=== PATIENT | female | born 1945 | race Caucasian/White ===

== ENCOUNTER 2017-02-14 20:02 | Emergency (ER) | payer MEDICARE, MEDICAID ==
[~2017-02-14] VITALS: Ht 160 cm; Wt 49.9 kg
--- NOTE | 2017-02-14 20:16 | NUR ---
PT PRESENTED TO THE ER WITH A C/O N/V WITH ABD PAIN. PT WAS TAKEN TO ROOM #3 VIA WC. PT IS [place] SPEAKING ONLY. PT WAS TAKEN TO THE BATHROOM AND A URINE SAMPLE WAS OBTAINED.
--- NOTE | 2017-02-14 20:25 | NUR ---
20G IV STARTED IN RAC. BLOOD WAS DRAWN.
[2017-02-14] MEDS ORDERED: IV NS 0.9% 1,000 ML ONE (20:28)
[2017-02-14] MEDS ORDERED: IV SET PRIMARY 1 EA INFUS.SET MC ONE (20:28)
[2017-02-14] MEDS ORDERED: ONDANSETRON HCL/PF 4 MG/2 ML VIAL ONE (20:28)
--- NOTE | 2017-02-14 20:28 | NUR ---
DR. SANTIAGO IS AT THE BEDSIDE.
[2017-02-14] MEDS ORDERED: IV NS 0.9% 1,000 ML BAG IV ONE ×2 (20:30→21:30)
[2017-02-14] MEDS ORDERED: ONDANSETRON HCL/PF 4 MG/2 ML VIAL IVP ONE (20:30)
[2017-02-14 20:32] LABS: BASOPHILS # (AUTO) 0.1 /CMM (0.0-0.2); BASOPHILS % (AUTO) 0.7 % (0.0-2.0); EOSINOPHILS % (AUTO) 0.6 % (0.0-6.0); HEMATOCRIT 42 % (33-45); HEMOGLOBIN 14.2 g/dL (11.5-14.8); LYMPHOCYTES # (AUTO) 1.2 /CMM (0.8-4.8); LYMPHOCYTES % (AUTO) 15.7 % (20.0-44.0); MEAN CORPUSCULAR HEMOGLOBIN 30 PG (26.0-33.0); MEAN CORPUSCULAR HGB CONC 34 g/dl (31.0-36.0); MEAN CORPUSCULAR VOLUME 90 fL (82-100); MONOCYTES # (AUTO) 0.2 /CMM (0.1-1.30); MONOCYTES % (AUTO) 2.2 % (2.0-12.0); NEUTROPHILS # (AUTO) 5.9 /CMM (1.8-8.9); NEUTROPHILS % (AUTO) 80.8 % (43.0-81.0); PLATELET COUNT (AUTO) 206 /CMM (150-450); RDW COEFFICIENT OF VARIATION 12.3 (11.5-15.0); WHITE BLOOD COUNT (AUTO) 7.4 K/uL (4.3-11.0)
[2017-02-14 20:34] LABS: APPEARANCE,URINE Clear (CLEAR); BILIRUBIN,URINE Negative (NEGATIVE); BLOOD, URINE Trace-intact Ery/uL (NEGATIVE); COLOR,URINE Yellow (YELLOW); KETONES,URINE 40 (NEGATIVE); LEUKOCYTE ESTERASE ,URINE Small (NEGATIVE); NITRITE, URINE Negative (NEGATIVE); PROTEIN,URINE Trace mg/dl (NEGATIVE); UGLUCOSE 500 MG/DL mg/dL (NEGATIVE); UROBILINOGEN,URINE 0.2 EU/dL (0.2)
[2017-02-14 20:43] LABS: CALCIUM, SERUM 8.8 mg/dL (8.5-10.1); CARBON DIOXIDE 28 mmol/L (21-32); CHLORIDE 102 mmol/L (98-107); CREATININE 0.9 mg/dL (0.6-1.3); GLUCOSE 324 mg/dL (74-106); POTASSIUM 3.6 mmol/L (3.5-5.1); SODIUM SERUM 138 mmol/L (136-145); UREA NITROGEN, BLOOD 18 mg/dL (7-18)
[2017-02-14 20:46] LABS: INR 0.98 (0.87-1.13); PROTHROMBIN TIME 10.2 SECS (9.5-12.7)
[2017-02-14 20:48] LABS: ALANINE AMINOTRANSFERASE 24 U/L (12-78); ALBUMIN 4.3 g/dL (3.4-5.0); ALKALINE PHOSPHATASE 132 U/L (46-116); ASPARTATE AMINOTRANSFERASE 25 U/L (15-37); BILIRUBIN,DIRECT 0.1 mg/dL (0.0-0.2); BILIRUBIN,TOTAL 0.5 mg/dL (0.2-1.0); LIPASE 127 U/L (73-393); TOTAL PROTEIN, SERUM 7.8 g/dL (6.4-8.2)
[2017-02-14 20:50] LABS: BACTERIA,URINE Few /HPF (None Seen); SQUAMOUS EPITHELIAL CELL,UR Few /HPF (None Seen)
--- NOTE | 2017-02-14 20:58 | NUR ---
XRAY TAKEN AT THE BEDSIDE.
--- NOTE | 2017-02-14 21:25 | NUR ---
DR. SANTIAGO IS AT THE BEDSIDE SPEAKING TO THE PT.
--- NOTE | 2017-02-14 21:28 | NUR ---
PT TO BE D/C'D HOME AFTER IVF IS FINISHED INFUSING.
[2017-02-14 22:07] VITALS: BP 145/73
--- NOTE | 2017-02-14 22:07 | NUR ---
IV removed. Catheter intact and site benign. Pressure and 4x4 applied to site. No bleeding noted.Patient discharged to home in stable condition. Written and verbal after care instructions given. Patient verbalizes understanding of instruction AND RX. PT'S FRIENDS ARE DRIVING PT HOME. VSS. PT FELT A LITTLE DIZZY UPON STANDING. PT SAT BACK DOWN AND WAS TAKEN TO THE CAR VIA WC.
== END 2017-02-14 22:09 | disposition home or self-care (01) ==
LOC: ER 20:06
DX: R10.13 Epigastric pain (principal); R11.2 Nausea with vomiting, unspecified; E11.65 Type 2 diabetes mellitus with hyperglycemia
CPT/HCPCS: 36415; 71010-TC; 80048-TC; 80076-TC; 81000-TC; 83690-TC; 85025-TC; 85730-TC; 87086-TC; A4606; J2405; J7030; Z7610

== ENCOUNTER 2019-09-15 17:44 | Inpatient (IN) | payer MEDICARE, MEDICAID ==
[~2019-09-15] VITALS: Ht 149.9 cm; Wt 47.2 kg
--- NOTE | 2019-09-15 17:55 | NUR ---
PT BIB CAREGIVER C/O LT FOOT PAIN, SWELLING AND REDNESS. SENT BY PMD FOR FURTHER EVAL. PT IS AAOX4, NOT IN RESPIRATORY DISTRESS, HOOKED TO MONITOR, KEPT RESTED AND COMFORTABLE, WILL CONTINUE TO MONITOR.
[2019-09-15] MEDS ORDERED: VANCOMYCIN 1 GM in IV D5W 250 ML IV ONE (18:00)
[2019-09-15] MEDS ORDERED: PIPERACILLIN /TAZOBACTAM 3.375 G in IV D5W 50 ML IV ONE (18:00)
[2019-09-15] MEDS ORDERED: IV NS 0.9% 1,000 ML BAG IV ONE ×2 (18:00→19:30)
--- NOTE | 2019-09-15 18:01 | NUR ---
SEEN AND EXAMINED BY .
--- NOTE | 2019-09-15 18:18 | NUR ---
URINE SPECIMEN COLLECTED AND SENT TO LAB.
--- NOTE | 2019-09-15 18:20 | NUR ---
CALLED NURSING SUP FOR M/S BED.
--- NOTE | 2019-09-15 18:20 | NUR ---
IV LINE ESTABLISHED, BLOOD DRAWN AND SENT TO LAB.
[2019-09-15 18:29] LABS: BASOPHILS # (AUTO) 0.1 /CMM (0.0-0.2); BASOPHILS % (AUTO) 0.5 % (0.0-2.0); EOSINOPHILS % (AUTO) 0.1 % (0.0-6.0); HEMATOCRIT 40 % (33-45); HEMOGLOBIN 13.3 g/dL (11.5-14.8); LYMPHOCYTES # (AUTO) 0.4 /CMM (0.8-4.8); MEAN CORPUSCULAR HGB CONC 34 g/dl (31.0-36.0); MEAN CORPUSCULAR VOLUME 91 fL (82-100); MONOCYTES # (AUTO) 0.9 /CMM (0.1-1.30); MONOCYTES % (AUTO) 7.7 % (2.0-12.0); NEUTROPHILS # (AUTO) 9.7 /CMM (1.8-8.9); NEUTROPHILS % (AUTO) 87.7 % (43.0-81.0); PLATELET COUNT (AUTO) 226 /CMM (150-450); RED BLOOD CELL COUNT(AUTO) 4.39 MIL/uL (4.0-5.2)
[2019-09-15 18:31] LABS: BILIRUBIN,URINE Negative (NEGATIVE); BLOOD, URINE Trace-lysed Ery/uL (NEGATIVE); COLOR,URINE Yellow (YELLOW); KETONES,URINE 40 (NEGATIVE); LEUKOCYTE ESTERASE ,URINE Negative (NEGATIVE); NITRITE, URINE Negative (NEGATIVE); PROTEIN,URINE Negative (NEGATIVE); UGLUCOSE 500 MG/DL mg/dL (NEGATIVE); UROBILINOGEN,URINE 0.2 EU/dL (0.2)
--- NOTE | 2019-09-15 18:34 | NUR ---
DOCUMENTATION ANALYST AT BEDSIDE FOR XRAY.
[2019-09-15 18:39] LABS: APPEARANCE,URINE SLIGHTLY HAZY (CLEAR)
[2019-09-15 18:51] LABS: BACTERIA,URINE Few /HPF (None Seen); RBC,URINE 0-2 /HPF (0-2); SQUAMOUS EPITHELIAL CELL,UR Few /HPF (None Seen); WBC,URINE 0-2 /HPF (0-3)
[2019-09-15 18:53] LABS: ALANINE AMINOTRANSFERASE 20 U/L (12-78); ALBUMIN 3.8 g/dL (3.4-5.0); ALKALINE PHOSPHATASE 112 U/L (46-116); ASPARTATE AMINOTRANSFERASE 23 U/L (15-37); BILIRUBIN,DIRECT 0.2 mg/dL (0.0-0.2); BILIRUBIN,TOTAL 0.8 mg/dL (0.2-1.0); CALCIUM, SERUM 8.7 mg/dL (8.5-10.1); CARBON DIOXIDE 24 mmol/L (21-32); CHLORIDE 96 mmol/L (98-107); CREATININE 1.2 mg/dL (0.6-1.3); POTASSIUM 4.2 mmol/L (3.5-5.1); SODIUM SERUM 132 mmol/L (136-145); TOTAL PROTEIN, SERUM 7.9 g/dL (6.4-8.2); UREA NITROGEN, BLOOD 19 mg/dL (7-18)
[2019-09-15 19:00] LABS: GLUCOSE 437 mg/dL (74-106)
[2019-09-15] MEDS ORDERED: MAGNESIUM HYDROXIDE 30 ML UDC PO PRN (19:00)
[2019-09-15] MEDS ORDERED: MAG HYDROX/AL HYDROX/SIMETH 30 ML UDC PO PRN (19:00)
[2019-09-15] MEDS ORDERED: Z GUARD REMEDY 2 OZ OINT TP PRN (19:00)
[2019-09-15] MEDS ORDERED: ONDANSETRON HCL/PF 4 MG/2 ML VIAL IVP PRN (19:00)
--- NOTE | 2019-09-15 19:05 | NUR ---
REPORT GIVEN TO CHERELLE SAUCEDO FOR TREY.
--- NOTE | 2019-09-15 20:19 | NUR ---
REPORT GIVEN TO PRAVIN VILLARREAL FOR TREY.
[2019-09-15] MEDS ORDERED: FEE PK DOSING 1 MIN EA MC ONE (20:23)
--- NOTE | 2019-09-15 20:41 | NUR ---
RN NOTES: -REPORT GIVEN BY LEWIS AT AROUND 2020, 74 Y.O.,A/O2-3, FEMALE TURKS AND [place]ER SPEAKING, CAME IN ER FOR LEFT FOOT SWOLLEN, PAIN AND REDNESS, SHE WAS SEEN BY HER OUTSIDE PRIMARY DOCTOR FOR 2 CONSECUTIVE DAYS, SHE WAS STARTED ON ROCEPHIN AND BACTRIM YESTERDAY, TODAY SHE WAS REFERRED FOR FURTHER EVALUATION AND ADMITTED IN [address] -AFEBRILE, WBC-11, BS-437, IV CANNULA INSERTED IN LAC G#18, SHE RECEIVED VANCO 1 GRAM AND ZOSYN 3.375 GM IN ER, IVF 2 LITER OF NS GIVEN. X-RAY LEFT FOOT NO ABNORMALITIES/NO FRACTURES. CONSIDER MRI IF THERE IS CLINICAL CONCERN FOR OSTEOMYELITIS.[facility]AB SENT. -PATIENT ARRIVED VIA GURNEY, ACCOMPANIED BY 1 STAFF FROM ER, ORIENTED TO UNIT AND STAFF, VERY COOPERATIVE ABLE TO OBTAIN HISTORY WITH THE HELP OF OFFICE CASHIER, SHE AGREED FOR BODY CHECK: 1) REDNESS, PAIN(2/10)AND SWELLING ON THE LEFT FOOT NOTED, OTHER AREAS OF THE BODY IS CLEAR, ROM IS WITHIN NORMAL RANGE ABLE TO STAND AND WALK WITH ASSIST, AMBULATORY,SHE REFUSED FOR PNA AND FLU VACCINE DESPITE EXPLANATION WITH THE HELP OF INTERPRETED SHE VERBALIZED SHE NEVER GET VACCINE AND SHE DO NOT BELIEVE IN IT. FALL,SAFETY AND ASPIRATION PRECAUTION OBSERVED, ON ROOM AIR, KEPT ON CLOSE WATCH.
[2019-09-15 21:00] VITALS: BP 128/51
[2019-09-15] MEDS: IV NS 0.9% 1,000 ML IV PRN (22:04)
--- NOTE | 2019-09-16 00:30 | NUR ---
RN NOTES: BLOOD SUGAR [id number], DIGITAL PERFORMANCE ANALYST DR. SINHA MADE AWARE, HE ORDERED TO START MILD SLIDING SCALE Q ACHS. INSULIN STARTED GIVEN PER SCALE.
[2019-09-16] MEDS: BLOOD SUGAR DIAGNOSTIC 1 EACH STRIP IN SCH ×5 (00:47→21:35)
[2019-09-16] MEDS: INSULIN REGULAR, HUMAN 100 UNIT/ML 3 ML VIAL SQ PRN ×5 (00:49→21:37)
[2019-09-16] MEDS ORDERED: DEXTROSE 50%-WATER 50 ML DISP.SYRIN IV PRN (01:00)
[2019-09-16 06:03] VITALS: BP 128/51
--- NOTE | 2019-09-16 06:23 | NUR ---
RN NOTES: AWAKE , ASSISTED TO THE BATHROOM, NO BM, TOTAL 3X URINE, ABLE TO WALK WITH STANDBY ASSIST, NO PAIN OR DISCOMFORT, KEPT COMFORTABLE IN BED, LATEST BS-185, ENDORSED FOR CONTINUITY OF CARE, FOR WOUND CONSULT, DIETARY CONSULT AND LABS THIS MORNING, ENDORSED FOR CONTINUITY OF CARE.
[2019-09-16 07:16] LABS: BASOPHILS % (AUTO) 0.5 % (0.0-2.0); EOSINOPHILS % (AUTO) 1.1 % (0.0-6.0); HEMATOCRIT 34 % (33-45); HEMOGLOBIN 11.6 g/dL (11.5-14.8); LYMPHOCYTES # (AUTO) 0.7 /CMM (0.8-4.8); LYMPHOCYTES % (AUTO) 10.1 % (20.0-44.0); MEAN CORPUSCULAR HGB CONC 34 g/dl (31.0-36.0); MEAN CORPUSCULAR VOLUME 90 fL (82-100); MONOCYTES # (AUTO) 0.7 /CMM (0.1-1.30); MONOCYTES % (AUTO) 9.5 % (2.0-12.0); NEUTROPHILS # (AUTO) 5.8 /CMM (1.8-8.9); NEUTROPHILS % (AUTO) 78.8 % (43.0-81.0); PLATELET COUNT (AUTO) 195 /CMM (150-450); RED BLOOD CELL COUNT(AUTO) 3.76 MIL/uL (4.0-5.2); WHITE BLOOD COUNT (AUTO) 7.4 K/uL (4.3-11.0)
[2019-09-16 07:42] LABS: CALCIUM, SERUM 7.7 mg/dL (8.5-10.1); CREATININE 0.9 mg/dL (0.6-1.3); MAGNESIUM 2.1 mg/dL (1.8-2.4); PHOSPHORUS 2.5 mg/dL (2.5-4.9); POTASSIUM 3.7 mmol/L (3.5-5.1)
[2019-09-16] MEDS ORDERED: GLIP5TAB13 PO (07:49)
[2019-09-16 08:00] VITALS: BP 118/61
--- NOTE | 2019-09-16 08:11 | NUR ---
MS RN OPENING NOTES RECEIVED PATIENT IN BED, ASLEEP. PATIENT BREATHING ON ROOM AIR WITH NO SIGNS OF DISTRESS OR SOB AT THIS TIME. NO SIGNS OF PAIN SUCH MOANING OR FACIAL GRIMACING. LAC GAUGE # 18 PRESENT AND INFUSING WELL AT 75 CC/HR. SAFETY PRECAUTIONS IN PLACE: BED IN LOW POSITION AND LOCKED, RAILS UP X 2, CALL LIGHT WITHIN REACH. WILL CONTINUE TO MONITOR PATIENT.
[2019-09-16] MEDS: VANCOMYCIN 500 MG in IV D5W 100 ML IV SCH ×2 (08:37→21:29)
[2019-09-16] MEDS: IV NS 0.9% 1,000 ML IV PRN (14:38)
[2019-09-16 16:00] VITALS: BP 137/58
--- NOTE | 2019-09-16 18:50 | NUR ---
MS RN CLOSING NOTES PATIENT IN BED AT THIS MOMENT, AWAKE, A/O X4. PATIENT ON ROOM AIR BREATHING EVENLY WITH NO SIGNS OF DISTRESS AT THIS MOMENT. PATIENT DENIES PAIN AT THIS TIME. LAC # 18 PATENT AND INTACT INFUSING NS AT 75 CC/HR. ALL NEEDS ATTENDED. SAFETY PRECAUTIONS IN PLACE: BED IN LOW POSITION AND LOCKED, RAILS UP X2, CALL LIGHT WITHIN REACH. WILL ENDORSE TO RHIT NURSE.
--- NOTE | 2019-09-16 19:20 | NUR ---
MS RN PATIENT IN BED AWAKE, WATCHING TV A/O X 3. STABLE AND NOT IN DISTRESS, SAFETY MEASURES IN PLACE. WILL CONTINUE TO MONITOR.
[2019-09-16 20:00] VITALS: BP 132/67
[2019-09-17] MEDS: IV NS 0.9% 1,000 ML IV PRN ×2 (04:18→23:29)
[2019-09-17] MEDS: INSULIN REGULAR, HUMAN 100 UNIT/ML 3 ML VIAL SQ PRN ×3 (06:23→22:21)
[2019-09-17] MEDS: BLOOD SUGAR DIAGNOSTIC 1 EACH STRIP IN SCH ×4 (06:23→22:21)
--- NOTE | 2019-09-17 06:39 | NUR ---
MS RN NO SIGNIFICANT CHANGES, PT ASLEEP AND EASILY AWAKEN, SLEPT WELL, NEEDS ATTENDED AND ANTICIPATED, KEPT CLEAN, DRY AND COMFORTABLE AT ALL TIMES. AM CARE RENDERED. OFFLOAD HEELS AND ELBOWS AT ALL TIMES. SAFETY MEASURES AT ALL TIMES. WILL ENDORSE NEXT SHIFT POC. MONITORED FOR PAIN.
--- NOTE | 2019-09-17 06:47 | NUR ---
MS RN PT REFUSED SLIDING SCALE R INSULIN OF 2 UNITS DESPITE EXPLAINING RISKS AND BENEFITS OFFERED 3 TIMES PT REFUSED. BLOOD SUGAR 141 MG/DL PT VERBALIZED"IM OKAY NO INSULIN PLEASE".
--- NOTE | 2019-09-17 07:33 | NUR ---
MS RN OPENING NOTES RECEIVED PATIENT IN BED, AWAKE, A/O X 4. PATIENT BREATHING ON ROOM AIR WITH NO SIGNS OF DISTRESS OR SOB AT THIS TIME. PATIENT DENIES PAIN AT THIS TIME. LAC GAUGE # 18 PRESENT AND INFUSING WELL AT 75 CC/HR. SAFETY PRECAUTIONS IN PLACE: BED IN LOW POSITION AND LOCKED, RAILS UP X 2, CALL LIGHT WITHIN REACH. WILL CONTINUE TO MONITOR PATIENT.
[2019-09-17 08:00] VITALS: BP 136/72
[2019-09-17 08:30] LABS: CALCIUM, SERUM 8.2 mg/dL (8.5-10.1); CARBON DIOXIDE 23 mmol/L (21-32); CHLORIDE 103 mmol/L (98-107); CREATININE 0.7 mg/dL (0.6-1.3); GLUCOSE 150 mg/dL (74-106); POTASSIUM 3.8 mmol/L (3.5-5.1); SODIUM SERUM 136 mmol/L (136-145); UREA NITROGEN, BLOOD 10 mg/dL (7-18)
[2019-09-17] MEDS: VANCOMYCIN 500 MG in IV D5W 100 ML IV SCH ×2 (08:36→20:43)
--- NOTE | 2019-09-17 12:58 | NUR ---
MS RN NOTES AT 12:08 VERIFIED PATIENT BS LEVEL. BS WAS 411 AFTER SECOND TEST. MD NOTIFIED. CRITICAL LAB VALUE DOCUMENTED. PER MD ADMINISTER 15 UNITS OF INSULIN X1 TIME. INSULIN ADMINISTERED. WILL CONTINUE TO MONITOR PATIENT.
[2019-09-17 16:00] VITALS: BP 145/60
--- NOTE | 2019-09-17 18:46 | NUR ---
MS RN CLOSING NOTES PATIENT IN BED, ASLEEP. THROUGHOUT THE DAY COOPERATIVE AND QUITE. PATIENT BREATHING ON ROOM AIR WITH NO SIGNS OF DISTRESS OR SOB AT THIS TIME. PATIENT DENIED PAIN THROUGHOUT THE DAY. R HAND # 20 PRESENT AND INFUSING WELL AT 75 CC/HR. SAFETY PRECAUTIONS IN PLACE: BED IN LOW POSITION AND LOCKED, RAILS UP X 2, CALL LIGHT WITHIN REACH. WILL ENDORSE TO MAKEUP ARTISTRY INSTRUCTOR NURSE.
--- NOTE | 2019-09-17 19:30 | NUR ---
RN MS NOTES PT RESTING IN BED, AWAKE, ALERT AND ORIENTED, NO COMPLAINT OF PAIN, BREATHING PATTERN NORMAL, CALL LIGHT WITHIN REACH, KEPT WARM AND COMFORTABLE, WILL CONTINUITY WITH CARE.
[2019-09-17 20:00] VITALS: BP 118/68
[2019-09-17 21:00] VITALS: BP 128/70
--- NOTE | 2019-09-18 06:38 | NUR ---
RN MS NOTES PT.RESTING IN BED, AWAKE, ALERT AND ORIENTED, NO COMPLAINT OF PAIN, BREATHING PATTERN NORMAL, CALL LIGHT WITHIN REACH, IV FLUIDS INFUSING WELL,, ALL NEEDS ATTENDED.WILL ENDORSE TO AM RN FOR CONTINUITY WITH CARE.
[2019-09-18] MEDS: INSULIN REGULAR, HUMAN 100 UNIT/ML 3 ML VIAL SQ PRN ×4 (06:52→21:55)
[2019-09-18] MEDS: BLOOD SUGAR DIAGNOSTIC 1 EACH STRIP IN SCH ×4 (06:54→21:50)
--- NOTE | 2019-09-18 07:30 | NUR ---
MS RN OPENING NOTES RECEIVED PATIENT IN BED ALERT AND AWAKE. HOB ELEVATED. NO SOB. C/O PAIN 2/10 TO LEFT FOOT BUT TOLERABLE PER PATIENT AND DOES NOT WANT PAIN MEDICATION AT THIS TIME. RIGHT FA # 20 INTACT AND PATENT INFUSING NS @ 75ML/HR MAREN WELL. BED IN LOWEST POSITION, LOCKED. BED ALARM ON. CALL LIGHT WITHIN REACH.
[2019-09-18 07:50] VITALS: BP 156/80
[2019-09-18 08:43] LABS: CALCIUM, SERUM 8.5 mg/dL (8.5-10.1); CREATININE 0.8 mg/dL (0.6-1.3); POTASSIUM 3.9 mmol/L (3.5-5.1)
[2019-09-18] MEDS: VANCOMYCIN 500 MG in IV D5W 100 ML IV SCH (09:17)
--- NOTE | 2019-09-18 09:54 | NUR ---
WOUND CARE CONSULT: PT PRESENTS WITH INTACT BLISTER WITH REDNESS, SWELLING AND TENDERNESS TO LEFT DORSAL FOOT, PRESENT ON ADMISSION. RECOMMEND DPM CONSULT. DR CAMPBELL NOTIFIED OF CONSULT REQUEST. Addendum: 09/18/19 at 0955 by TEOFILO PERRY WNDNU Amended: Links added.
[2019-09-18] MEDS: HYDROCODONE/APAP 5/325MG 1 EACH TABLET PO PRN (15:42)
[2019-09-18 16:00] VITALS: BP 140/71
--- NOTE | 2019-09-18 16:59 | NUR ---
MS RN NOTES PATIENT OFF UNIT, PATIENT LEFT FOR MRI
[2019-09-18] MEDS: IV NS 0.9% 1,000 ML IV PRN (17:50)
--- NOTE | 2019-09-18 18:44 | NUR ---
MS RN CLOSING NOTES PATIENT RESTING COMFORTABLY IN BED. FAMILY AT BEDSIDE. HOB ELEVATED. NO S/S OF RESPIRATORY DISTRESS. DENIES ANY C/O PAIN NOR DISCOMFORT AT THIS TIME. LEFT FA # 22 INTACT AND PATENT INFUSING NS @ 75ML/HR MAREN WELL. PATIENT SEEN BY DR. GALDAMEZ, WOUND CARE DONE TO LEFT FOOT MAREN WELL. BED IN LOWEST POSITION, LOCKED. BED ALARM ON. CALL LIGHT WITHIN REACH. ABLE TO VERBALIZE NEEDS. IN NO APPARENT DISTRESS.
--- NOTE | 2019-09-18 19:30 | NUR ---
MS RN OPENING NOTES PATIENT AWAKE IN BED. A/OX4. [place] CITIZEN SPEAKING. ON ROOM AIR. NO S/S OF ACUTE RESPIRATORY DISTRESS AND NO COMPLAINTS OF PAIN AT THIS TIME. IV PRESENT ON LEFT FA, SIZE 22, INTACT & PATENT, HEP LOCKED. BED LOCKED, SIDE RAILS X2, CALL LIGHT WITHIN REACH. WILL CONTINUE TO MONITOR.
[2019-09-18 20:00] VITALS: BP 115/57
[2019-09-18] MEDS: VANCOMYCIN 0.75 GM in IV D5W 250 ML IV SCH (21:32)
[2019-09-19] MEDS: HYDROCODONE/APAP 5/325MG 1 EACH TABLET PO PRN (03:24)
[2019-09-19] MEDS: BLOOD SUGAR DIAGNOSTIC 1 EACH STRIP IN SCH ×4 (07:06→22:52)
[2019-09-19] MEDS: INSULIN REGULAR, HUMAN 100 UNIT/ML 3 ML VIAL SQ PRN ×4 (07:07→23:00)
--- NOTE | 2019-09-19 07:38 | NUR ---
MS RN CLOSING NOTES PATIENT AWAKE IN BED. A/O X4. ON ROOM AIR. NO COMPLAINTS OF SOB OR PAIN. IV REMAINS INTACT & PATENT. BED LOCKED, SIDE RAILS X2, CALL LIGHT WITHIN REACH. WILL ENDORSE TO DAY SHIFT NURSE TO FOLLOW PLAN OF CARE.
--- NOTE | 2019-09-19 07:39 | NUR ---
MS/RN OPENING NOTES RECEIVED PATIENT AWAKE IN BED. A/OX4. JAPANESE SPEAKING. ON ROOM AIR. NO S/S OF ACUTE RESPIRATORY DISTRESS AND NO COMPLAINTS OF PAIN AT THIS TIME. IV FLUID OF NS 1L @ 75ml/hr ON LEFT FA, SIZE 22, INTACT & PATENT, BED LOCKED, SIDE RAILS X2, CALL LIGHT WITHIN REACH. WILL CONTINUE TO MONITOR.
[2019-09-19 07:51] LABS: BASOPHILS # (AUTO) 0.1 /CMM (0.0-0.2); BASOPHILS % (AUTO) 0.7 % (0.0-2.0); EOSINOPHILS % (AUTO) 2.3 % (0.0-6.0); HEMATOCRIT 29 % (33-45); LYMPHOCYTES # (AUTO) 0.8 /CMM (0.8-4.8); LYMPHOCYTES % (AUTO) 12.1 % (20.0-44.0); MEAN CORPUSCULAR HGB CONC 35 g/dl (31.0-36.0); MEAN CORPUSCULAR VOLUME 90 fL (82-100); MONOCYTES # (AUTO) 0.8 /CMM (0.1-1.30); MONOCYTES % (AUTO) 11.6 % (2.0-12.0); NEUTROPHILS % (AUTO) 73.3 % (43.0-81.0); PLATELET COUNT (AUTO) 220 /CMM (150-450); WHITE BLOOD COUNT (AUTO) 6.8 K/uL (4.3-11.0)
[2019-09-19 08:00] VITALS: BP_SYST 113; BP_SYST 147; BP_DIAS 56; BP_DIAS 82
[2019-09-19 08:26] LABS: CALCIUM, SERUM 7.5 mg/dL (8.5-10.1); CREATININE 0.9 mg/dL (0.6-1.3); POTASSIUM 3.3 mmol/L (3.5-5.1)
[2019-09-19] MEDS: VANCOMYCIN 0.75 GM in IV D5W 250 ML IV SCH ×2 (08:48→20:35)
[2019-09-19] MEDS: IV NS 0.9% 1,000 ML IV PRN (11:04)
[2019-09-19] MEDS ORDERED: POTASSIUM CHLORIDE 20 MEQ TAB.PRT.SR PO SCH (12:00)
--- NOTE | 2019-09-19 12:01 | NUR ---
MS/RN NOTES BS 344MG/DL 8 UNIT INSULIN
[2019-09-19 16:00] VITALS: BP 141/84
[2019-09-19] MEDS: ACETAMINOPHEN 325 MG TABLET PO PRN (16:00)
--- NOTE | 2019-09-19 16:01 | NUR ---
MS/RN NOTES PATIENT T 101.3, COOLING MEASURE WAS INITIATED PATIENT REFUSED, EXPLAINED THE RISK AND BENEFITS X3, STILL PATIENT REFUSED. ADMINISTERED TYLENOL 640 MG P.O. WILL CONTINUE TO MONITOR.
--- NOTE | 2019-09-19 18:28 | NUR ---
MS/RN CLOSING NOTES PATIENT IS ON BED. PATIENT IS ALERT AND ORIENTED X4. NO RESPIRATORY DISTRESS NOTED. DENIES PAIN AT THIS TIME. SATURATION OXYGEN OF 97% IN ROOM AIR. LATEST TEMP 100. COOLING COMPRESS IS OFFERED PATIENT WAS REFUSED EXPLAINED THE RISK AND BENEFITS. SEEN AND EXAMINED BY MD WITH ORDERS MADE AND CARRIED OUT. ALL DUE MEDS WAS GIVEN. SAFETY PRECAUTION IS INPLACED. BED IN LOWEST POSITION. SIDE RAILS UP X2. CALL LIGHT WITHIN REACH. WILL ENDORSED TO AUTOMATION SALES MANAGER FOR TREY.
--- NOTE | 2019-09-19 19:47 | NUR ---
MS RN OPENING NOTES PATIENT AWAKE A/O X4; PERSIAN SPEAKING; RESTING IN BED COMFORTABLY; BREATHING EVEN AND UNLABORED; NO SOB; NO S/S OF ACUTE RESPIRATORY DISTRESS NOTED; PATIENT TOLERATING ROOM AIR WELL; L FA # 22 INTACT AND PATENT; FLUSHING WELL; NO S/S OF REDNESS OR INFILTRATION; SAFETY PRECAUTIONS IN PLACE; BED LOCKED IN LOW POSITION; SIDE RAILS X2; CALL LIGHT WITHIN REACH; WILL CONTINUE TO MONITOR
[2019-09-19 20:00] VITALS: BP 111/72
--- NOTE | 2019-09-19 23:00 | NUR ---
MS RN NOTES L FA #22 INFILTRATED; IV VANCO STOPPED; IV ACCESS OBTAINED; NEW ACCESS GIVEN, R FA #18; INTACT AND PATENT; FLUSHING WELL; VANCO RE-STARTED; WILL CONTINUE TO MONITOR
[2019-09-20] MEDS: BLOOD SUGAR DIAGNOSTIC 1 EACH STRIP IN SCH ×4 (06:46→22:16)
[2019-09-20] MEDS: INSULIN REGULAR, HUMAN 100 UNIT/ML 3 ML VIAL SQ PRN ×4 (06:48→22:29)
--- NOTE | 2019-09-20 07:06 | NUR ---
MS RN CLOSING NOTES PATIENT AWAKE, RESTING COMFORTABLY IN BED; A/O X4; SOUTH SUDANESE SPEAKER; NO SOB; NO S/S OF ACUTE RESPIRATORY DISTRESS NOTED; ALL NEEDS RENDERED; R FA #18 INTACT AND PATENT; FLUSHING WELL; NO S/S OF REDNESS OR INFILTRATION; SAFETY PRECAUTIONS IN PLACE; BED LOCKED IN LOW POSITION; BILATERAL SIDE RAILS X2; CALL LIGHT WITHIN REACH; WILL ENDORSE TREY TO ONCOMING SHIFT
--- NOTE | 2019-09-20 07:35 | NUR ---
MS/RN OPENING NOTES MS RN CLOSING NOTES RECEIVED PATIENT AWAKE, RESTING COMFORTABLY IN BED; A/O X4; SLOVENIAN SPEAKER; NO SOB; NO S/S OF ACUTE RESPIRATORY DISTRESS NOTED; R FA #18 INTACT AND PATENT; FLUSHING WELL; NO S/S OF REDNESS OR INFILTRATION; SAFETY PRECAUTIONS IN PLACE; BED LOCKED IN LOW POSITION; BILATERAL SIDE RAILS X2; WILL CONTINUE TO MONITOR.
[2019-09-20 08:00] VITALS: BP 112/60
[2019-09-20 08:57] LABS: CALCIUM, SERUM 8.1 mg/dL (8.5-10.1); CREATININE 0.8 mg/dL (0.6-1.3); POTASSIUM 3.5 mmol/L (3.5-5.1)
[2019-09-20] MEDS: VANCOMYCIN 0.75 GM in IV D5W 250 ML IV SCH (09:59)
[2019-09-20] MEDS ORDERED: VANC1PLA9 IV (12:06)
--- NOTE | 2019-09-20 18:22 | NUR ---
MS/RN CLOSING NOTES PATIENT IS LYING ON BED COMFORTABLY ALERT AND ORIENTED X 3. DENIES PAIN AT THIS TIME. NO RESPIRATORY DISTRESS NOTED. IVF OF NS 1L INFUSING 75ML/HR KEPT PATIENT DRY AND COMFORTABLE THE WHOLE TIME. SEEN AND EXAMINED BY MD WITH ORDERS MADE AND CARRIED OUT. ALL DUE MEDS WAS GIVEN. WOUND DRESSING WAS DONE. SAFETY PRECAUTION IS IN PLACED. BED IN LOWEST POSITION. CALL LIGHT WITHIN REACH. WILL ENDORSED TO SIX SIGMA BLACK BELT ENGINEER.
[2019-09-20 20:00] VITALS: BP 127/65
[2019-09-20] MEDS: VANCOMYCIN 500 MG in IV D5W 100ml IV SCH (20:41)
--- NOTE | 2019-09-21 06:18 | NUR ---
MS RN NOTES AWAKE & RESPONSIVE. NOT IN ANY DISTRESS. NO SOB NOTED. DENIES ANY PAIN OR DISCOMFORT AT THIS TIME. WITH IV-HL PATENT & INTACT. AM CARE DONE. MONITORED ACCORDINGLY. CALL LIGHT WITHIN REACH. BED IN LOWEST POSITION. SR UP X 2 WITH BED ALARM ON FOR SAFETY. WILL ENDORSE TO NEXT SHIFT.
[2019-09-21] MEDS: BLOOD SUGAR DIAGNOSTIC 1 EACH STRIP IN SCH ×4 (06:40→22:08)
[2019-09-21 07:11] LABS: BASOPHILS # (AUTO) 0.1 /CMM (0.0-0.2); BASOPHILS % (AUTO) 1.2 % (0.0-2.0); EOSINOPHILS % (AUTO) 1.6 % (0.0-6.0); HEMATOCRIT 30 % (33-45); HEMOGLOBIN 10.2 g/dL (11.5-14.8); LYMPHOCYTES # (AUTO) 0.6 /CMM (0.8-4.8); LYMPHOCYTES % (AUTO) 9.2 % (20.0-44.0); MEAN CORPUSCULAR HGB CONC 34 g/dl (31.0-36.0); MEAN CORPUSCULAR VOLUME 90 fL (82-100); MONOCYTES # (AUTO) 0.8 /CMM (0.1-1.30); MONOCYTES % (AUTO) 12.6 % (2.0-12.0); NEUTROPHILS # (AUTO) 4.7 /CMM (1.8-8.9); NEUTROPHILS % (AUTO) 75.4 % (43.0-81.0); PLATELET COUNT (AUTO) 275 /CMM (150-450); RED BLOOD CELL COUNT(AUTO) 3.32 MIL/uL (4.0-5.2); WHITE BLOOD COUNT (AUTO) 6.2 K/uL (4.3-11.0)
[2019-09-21 08:00] VITALS: BP 131/63
[2019-09-21 08:18] LABS: CREATININE 0.9 mg/dL (0.6-1.3); MAGNESIUM 1.9 mg/dL (1.8-2.4); PHOSPHORUS 4.2 mg/dL (2.5-4.9); POTASSIUM 3.6 mmol/L (3.5-5.1)
[2019-09-21 08:29] VITALS: BP 131/63
--- NOTE | 2019-09-21 09:10 | NUR ---
Dressing changed , wound care as ordered.
[2019-09-21] MEDS: VANCOMYCIN 500 MG in IV D5W 100ml IV SCH ×2 (11:09→22:09)
[2019-09-21] MEDS: INSULIN REGULAR, HUMAN 100 UNIT/ML 3 ML VIAL SQ PRN ×3 (11:47→22:21)
--- NOTE | 2019-09-21 12:10 | NUR ---
Patient noted with leaking IV line, which was removed. A new IV line to the right arm G 22, flushing well.
--- NOTE | 2019-09-21 12:53 | NUR ---
Per patient needs PICC line for penitentiary antibiotics after d/c
[2019-09-21 16:11] VITALS: BP 144/76
--- NOTE | 2019-09-21 19:09 | NUR ---
Patient resting in room. Breathing unlabored and even on room air , VS are stable. Denies pain at this time. Patient NPO after midnight for am procedur by dr. Sampson. All needs attended. Will endorse to next shift for TREY
--- NOTE | 2019-09-21 19:38 | NUR ---
received in bed alert and orientaed. speaks macanese with some understanding of brad. Asked her about surgery and she tld me it is tomorroe. She stated the Doctor came here and told her about it. dresing clean anddry wrapped with gauze
[2019-09-21 20:00] VITALS: BP 133/61
[2019-09-21] MEDS ORDERED: CEFTRIAXONE 1 G in IV D5W 50 ML IV SCH (20:30)
[2019-09-21 20:33] VITALS: BP 133/61
[2019-09-22] MEDS: BLOOD SUGAR DIAGNOSTIC 1 EACH STRIP IN SCH ×3 (05:34→11:30)
[2019-09-22] MEDS ORDERED: FENTANYL PF 250MCG/5ML AMPUL ONE (05:41)
[2019-09-22] MEDS ORDERED: MIDAZOLAM HCL 2 MG/2ML VIAL ONE (05:41)
--- NOTE | 2019-09-22 06:00 | NUR ---
ENDING NOTES: BLOOD SUGAR THIS AM WAS 110. DENTURES UPPER & LOWER PLACED IN MARKED CUP PLACED IN TOP SIDE TABLE DRAWER WITH RING/EARRINGS/NECKLACE IN DEUTURE CUP IN PLASTIC BAG AND CUP LABELED WITH HER NAME. SURGERY HER TO P/U PT AT 0545.
[2019-09-22] MEDS ORDERED: ANESTHESIA TRAY IN PYXIS 1 EA TRAY MC ONE (06:01)
[2019-09-22] MEDS ORDERED: LIDOCAINE HCL/PF 1% 30 ML SDV ONE (06:05)
[2019-09-22] MEDS ORDERED: BUPIVACAINE 0.5 % PF 150 MG/30 ML VIAL ONE (06:05)
[2019-09-22] MEDS ORDERED: VANCOMYCIN 1 GM VIAL ONE (06:05)
[2019-09-22] MEDS ORDERED: GENTAMICIN 80 MG/2 ML VIAL ONE (06:22)
[2019-09-22 08:00] VITALS: BP 137/63
--- NOTE | 2019-09-22 08:00 | NUR ---
M/S RN NOTES PATIENT RECEIVED FROM SURGERY, VSS, NO RESPIRATORY DISTRESS, NO C/O PAIN AT THIS TIME. PATIENT'S DRESSING ON THE LEFT FOOT C/D/I. ASSESSED FOR CIRCULATION AND CAP REFILL <2SEC. IV ACCESS SITES INTACT AND PATENT ON THE LT HAND AND RT FOREARM. PICC LINE ON THE RT UPPER ARM, INTACT AND PATENT. PATIENT'S NEEDS ATTENDED, BED ON LOWEST LOCKED POSITION, CALL LIGHT WITHIN REACH. WILL CONTINUE TO MONITOR.
[2019-09-22] MEDS: VANCOMYCIN 500 MG in IV D5W 100ml IV SCH (09:26)
[2019-09-22] MEDS: INSULIN REGULAR, HUMAN 100 UNIT/ML 3 ML VIAL SQ PRN (11:33)
[2019-09-22] MEDS: ACETAMINOPHEN 325 MG TABLET PO PRN (12:07)
--- NOTE | 2019-09-22 15:20 | NUR ---
M/S RN NOTES PATIENT AWAKE IN BED, FAMILY AT BEDSIDE. PATIENT WITH NO RESPIRATORY DISTRESS, NO COMPLAINT OF PAIN AT THIS TIME. PATIENT'S VSS. PATIENT AND FAMILY GIVEN DISCHARGE INSTRUCTIONS, VERBALIZED UNDERSTANDING. PATIENT'S S/P INCISION AND DEBRIDEMENT, SKIN ASSESSED, LEFT FOOT WITH DRESSING C/D/I. LEFT FOOT WITH SURGICAL SHOE. PATIENT WITH NO OTHER SKIN BREAKDOWN. PATIENT'S BELONGINGS ACCOUNTED FOR AND SIGNED. PATIENT LEFT VIA GURNEY WITH PARAMEDICS.
== END 2019-09-22 15:20 | DRG 622 ==
LOC: ER 17:49 → MED 20:19
PROVIDERS: ADMIT Internal Medicine; ATTEND Internal Medicine
PROC: 0JBR0ZZ Excision of Left Foot Subcutaneous Tissue and Fascia, Open Approach (ICD-10-PCS; principal; 2019-09-22)
PROC: 0QBR0ZX Excision of Left Toe Phalanx, Open Approach, Diagnostic (ICD-10-PCS; 2019-09-22)
DX: E11.00 Type 2 diabetes mellitus with hyperosmolarity without nonketotic hyperglycemic-hyperosmolar coma (NKHHC) (principal); N17.0 Acute kidney failure with tubular necrosis; L03.116 Cellulitis of left lower limb; E87.1 Hypo-osmolality and hyponatremia; M86.9 Osteomyelitis, unspecified; L02.612 Cutaneous abscess of left foot; R65.10 Systemic inflammatory response syndrome (SIRS) of non-infectious origin without acute organ dysfunction; E11.69 Type 2 diabetes mellitus with other specified complication; E11.42 Type 2 diabetes mellitus with diabetic polyneuropathy; E11.621 Type 2 diabetes mellitus with foot ulcer; E86.1 Hypovolemia; E11.65 Type 2 diabetes mellitus with hyperglycemia; L97.529 Non-pressure chronic ulcer of other part of left foot with unspecified severity; E11.51 Type 2 diabetes mellitus with diabetic peripheral angiopathy without gangrene
CPT/HCPCS: 36415; 71045-TC; 73630-TC; 73718-TC; 80048-TC; 80076-TC; 80202-TC; 81000-TC; 82962-TC; 83605-TC; 83735-TC; 84100-TC; 84484-TC; 85025-TC; 85730-TC; 87040-TC; 87070-TC; 87081-TC; 87086-TC; 88305-TC; 88311-TC; 88312-TC; 97112-TC; 97116-TC; 97530-TC; A4217; A6253; A6403; C1751; G0378; J0696; J1580; J1815; J2250; J2543; J3010; J3370; J3490; J7030; J7060

== ENCOUNTER 2019-10-08 15:58 | Inpatient (IN) | payer MEDICARE, MEDICAID ==
[~2019-10-08] VITALS: Ht 157.5 cm; Wt 47.2 kg
[~2019-10-08 15:58] MED LIST: GLIP5TAB13 PO; VANC1PLA9 IV
--- NOTE | 2019-10-08 16:00 | NUR ---
PT BIBPA FROM [facility] C/O L FOOT INFECTION, PT IS AAOX3 CAMEROONIAN SPEAKING ONLY, NOT IN RESPIRATORY DISTRESS, HOOKED TO MONITOR, KEPT RESTED AND COMFORTABLE, WILL CONTINUE TO MONITOR.
--- NOTE | 2019-10-08 16:04 | NUR ---
AT BEDSIDE FOR EVAL.
--- NOTE | 2019-10-08 16:20 | NUR ---
URINE SPECIMEN COLLECTED AND SENT TO LAB.
--- NOTE | 2019-10-08 16:22 | NUR ---
ER PHLEB AT BEDSIDE FOR BLOOD DRAW.
[2019-10-08] MEDS ORDERED: VANC750V IV (16:26)
[2019-10-08] MEDS ORDERED: ASCO500T9 PO (16:26)
[2019-10-08] MEDS ORDERED: METF-440 PO (16:26)
[2019-10-08] MEDS ORDERED: MAGN400O6 PO (16:26)
[2019-10-08] MEDS ORDERED: COLL30OI TP (16:26)
[2019-10-08] MEDS ORDERED: BISA10SU11 RC (16:26)
[2019-10-08] MEDS ORDERED: ZINC1CAP2 PO (16:26)
[2019-10-08] MEDS ORDERED: NA P133E RC (16:26)
[2019-10-08] MEDS ORDERED: ACET-868 PO ×2 (16:26)
[2019-10-08] MEDS ORDERED: INSU100V30 SQ (16:26)
[2019-10-08] MEDS ORDERED: MULT9LIQ5 PO (16:26)
[2019-10-08] MEDS ORDERED: AMIN30LI2 PO (16:26)
[2019-10-08] MEDS ORDERED: GLUC1KIT IM (16:26)
[2019-10-08] MEDS ORDERED: IV NS 0.9% 1,000 ML BAG IV ONE (16:30)
[2019-10-08] MEDS: ACETAMINOPHEN ES 500 MG TABLET PO ONE ×2 (16:31→16:34)
--- NOTE | 2019-10-08 16:31 | NUR ---
MOVE SHEET SUBMITTED TO ADMITTING AND CALLED FOR MS BED
[2019-10-08 16:32] LABS: BASOPHILS # (AUTO) 0.1 /CMM (0.0-0.2); BASOPHILS % (AUTO) 1.1 % (0.0-2.0); EOSINOPHILS % (AUTO) 1.3 % (0.0-6.0); HEMATOCRIT 28 % (33-45); HEMOGLOBIN 9.5 g/dL (11.5-14.8); LYMPHOCYTES # (AUTO) 0.6 /CMM (0.8-4.8); LYMPHOCYTES % (AUTO) 5.1 % (20.0-44.0); MEAN CORPUSCULAR HGB CONC 33 g/dl (31.0-36.0); MEAN CORPUSCULAR VOLUME 88 fL (82-100); MONOCYTES % (AUTO) 8.9 % (2.0-12.0); NEUTROPHILS # (AUTO) 9.2 /CMM (1.8-8.9); NEUTROPHILS % (AUTO) 83.6 % (43.0-81.0); PLATELET COUNT (AUTO) 401 /CMM (150-450); RED BLOOD CELL COUNT(AUTO) 3.23 MIL/uL (4.0-5.2)
[2019-10-08] MEDS ORDERED: ACETAMINOPHEN ES 500 MG TABLET ONE (16:32)
[2019-10-08 16:34] LABS: APPEARANCE,URINE Cloudy (CLEAR); BILIRUBIN,URINE Negative (NEGATIVE); BLOOD, URINE Negative Ery/uL (NEGATIVE); COLOR,URINE Yellow (YELLOW); KETONES,URINE Trace (NEGATIVE); LEUKOCYTE ESTERASE ,URINE Negative (NEGATIVE); NITRITE, URINE Negative (NEGATIVE); PH,URINE 5.5 (5.0-8.0); PROTEIN,URINE 30 mg/dl (NEGATIVE); UGLUCOSE Negative (NEGATIVE)
--- NOTE | 2019-10-08 16:37 | NUR ---
COST RECORDER AT BEDSIDE FOR XRAY.
[2019-10-08 16:42] LABS: CALCIUM, SERUM 8.3 mg/dL (8.5-10.1); CARBON DIOXIDE 26 mmol/L (21-32); CHLORIDE 99 mmol/L (98-107); CREATININE 1.6 mg/dL (0.6-1.3); GLUCOSE 137 mg/dL (74-106); POTASSIUM 3.6 mmol/L (3.5-5.1); SODIUM SERUM 134 mmol/L (136-145); UREA NITROGEN, BLOOD 16 mg/dL (7-18)
[2019-10-08 16:48] LABS: ALANINE AMINOTRANSFERASE 40 U/L (12-78); ALBUMIN 2.2 g/dL (3.4-5.0); ALKALINE PHOSPHATASE 143 U/L (46-116); ASPARTATE AMINOTRANSFERASE 49 U/L (15-37); BILIRUBIN,DIRECT 0.3 mg/dL (0.0-0.2); BILIRUBIN,TOTAL 0.7 mg/dL (0.2-1.0); TOTAL PROTEIN, SERUM 6.9 g/dL (6.4-8.2)
[2019-10-08] MEDS ORDERED: VANCOMYCIN 1 GM in IV D5W 250 ML IV ONE (17:00)
[2019-10-08] MEDS ORDERED: PIPERACILLIN /TAZOBACTAM 3.375 G in IV D5W 50 ML IV ONE (17:00)
[2019-10-08 17:04] LABS: BACTERIA,URINE Few /HPF (None Seen); RBC,URINE 0-2 /HPF (0-2); SQUAMOUS EPITHELIAL CELL,UR Few /HPF (None Seen); URINE AMORPHOUS URATE Moderate /HPF (None Seen); WBC,URINE 0-2 /HPF (0-3)
--- NOTE | 2019-10-08 17:32 | NUR ---
CALLED ANTONY, ITS DERDERYAN
--- NOTE | 2019-10-08 17:58 | NUR ---
REPORT GIVEN TO CHERELLE TYSON FOR TREY, WITH ONGOING IVF AND ANTIBIOTIC.
[2019-10-08] MEDS ORDERED: VANCOMYCIN 0.75 GM in IV D5W 250 ML IV ONE (18:00)
[2019-10-08] MEDS ORDERED: PIPERACILLIN /TAZOBACTAM 4.5 G in IV D5W 50 ML IV SCH (18:00)
[2019-10-08] MEDS ORDERED: Z GUARD REMEDY 2 OZ OINT TP PRN (18:00)
[2019-10-08] MEDS ORDERED: FEE PK DOSING 1 MIN EA MC ONE (18:19)
[2019-10-08 18:34] VITALS: BP 144/73
[2019-10-08] MEDS: IV NS 0.9% 1,000 ML IV PRN (18:35)
--- NOTE | 2019-10-08 18:35 | NUR ---
MS RN NOTE PATIENT ARRIVED BY RITA AT 1825. PATIENT NOW IN BED RESTING COMFORTABLY. PATIENT TEMPERATURE UPON ARRIVAL IS 101.2. IMPLEMENTED COOLING MEASURES AND GAVE TYLENOL PRN. PATIENT IN NO ACUTE DISTRESS. NO SOB NOTED. PATIENT BREATHING IS EVEN AND UNLABORED. PATIENT BED IS LOCKED AND IN LOWEST POSITION. SAFETY PRECAUTIONS IN PLACE. BED ALARM IS ON. CALL LIGHT WITHIN REACH, WILL ENDORSE ADMISSION AND CARE TO PM SHIFT FOR TREY.
[2019-10-08] MEDS: ACETAMINOPHEN 325 MG TABLET PO PRN (18:36)
--- NOTE | 2019-10-08 19:30 | NUR ---
RN ADMITTING/OPENING NOTES RECEIVED REPORT FROM DAYSHIFT CHERELLE TYSON. ADMISSION WAS ALREADY ON THE FLOOR AT START OF SHIFT. FOUND Pt RESTING IN BED, LETHARGIC, BUT EASILY AWAKENED BY NAME AND TOUCH. PER REPORT Pt IS A/OX3, BUT IS LATVIAN SPEAKING ONLY, BUT IS A POOR HISTORIAN. NO S/S OF ACUTE DISTRESS OR SOB NOTED. NO C/O PAIN AT THIS TIME. IV ACCESS ON CECILIO PICC LINE. IVF NS @75ML/HR. PER DAYSHIFT REPORT Pt HAD TEMP OF 102, ADMINISTERED TYLENOL. WILL PROVIDE COOLING MEASURES FOR Pt AND RECHECK TEMP. SAFETY MEASURES IN PLACE. BED LOW, LOCKED, HOB ELEVATED, SIDE RAILS UP, CALL LIGHT AND BEDSIDE TABLE WITHIN REACH. WILL CONTINUE TO MONITOR Pt'S CONDITION AND SAFETY THROUGHOUT THE NIGHT.
[2019-10-08 20:22] VITALS: BP 144/73
[2019-10-08 21:00] VITALS: BP 144/73
[2019-10-09] VITALS: BP 144/73
--- NOTE | 2019-10-09 | NUR ---
RN NOTES RECHECKED TEMP: 98.3F ORAL
[2019-10-09] MEDS: ZOSYN IVPB 2.25 G in IV D5W 50ml IV SCH ×4 (00:09→18:11)
[2019-10-09] MEDS: IV NS 0.9% 1,000 ML IV PRN (00:16)
[2019-10-09] MEDS ORDERED: DEXTROSE 50%-WATER 50 ML DISP.SYRIN IV PRN (00:30)
--- NOTE | 2019-10-09 06:21 | NUR ---
RN NOTES AC ACCUCHECK BG 180. Pt REFUSED INSULIN AT THIS TIME.
--- NOTE | 2019-10-09 06:22 | NUR ---
RN CLOSING NOTES NO SIGNIFICANT CHANGES IN Pt's CONDITION. Pt IS RESTING IN BED, EASILY AWAKENED BY NAME. NO S/S OF ACUTE DISTRESS OR SOB NOTED DURING THE NIGHT. ALL NEEDS MET AND ATTENDED TO. SAFETY MEASURES IN PLACE. WILL ENDORSE TO DAYSHIFT RN FOR Pt's TREY.
[2019-10-09] MEDS: BLOOD SUGAR DIAGNOSTIC 1 EACH STRIP IN SCH ×4 (06:32→22:28)
[2019-10-09 07:15] LABS: BASOPHILS # (AUTO) 0.1 /CMM (0.0-0.2); BASOPHILS % (AUTO) 1.1 % (0.0-2.0); EOSINOPHILS % (AUTO) 1.6 % (0.0-6.0); HEMATOCRIT 25 % (33-45); HEMOGLOBIN 8.4 g/dL (11.5-14.8); LYMPHOCYTES # (AUTO) 0.3 /CMM (0.8-4.8); MEAN CORPUSCULAR HGB CONC 34 g/dl (31.0-36.0); MEAN CORPUSCULAR VOLUME 87 fL (82-100); MONOCYTES # (AUTO) 0.7 /CMM (0.1-1.30); MONOCYTES % (AUTO) 8.6 % (2.0-12.0); NEUTROPHILS # (AUTO) 7.4 /CMM (1.8-8.9); NEUTROPHILS % (AUTO) 84.7 % (43.0-81.0); PLATELET COUNT (AUTO) 391 /CMM (150-450); RED BLOOD CELL COUNT(AUTO) 2.83 MIL/uL (4.0-5.2); WHITE BLOOD COUNT (AUTO) 8.7 K/uL (4.3-11.0)
--- NOTE | 2019-10-09 07:37 | NUR ---
M/S RN NOTES PATIENT AWAKE IN BED, NO RESPIRATORY DISTRESS, NO C/O PAIN AT THIS TIME. SKIN WARM TO TOUCH, DRESSING ON THE LEFT FOOT C/D/I. IV ACCESS SITE INTACT AND PATENT. PATIENT'S NEEDS ATTENDED, BED ON LOWEST LOCKED POSITION, CALL LIGHT WITHIN REACH. WILL CONTINUE TO MONITOR.
[2019-10-09 07:55] LABS: ALANINE AMINOTRANSFERASE 29 U/L (12-78); ALBUMIN 1.6 g/dL (3.4-5.0); ALKALINE PHOSPHATASE 106 U/L (46-116); ASPARTATE AMINOTRANSFERASE 30 U/L (15-37); BILIRUBIN,TOTAL 0.6 mg/dL (0.2-1.0); CALCIUM, SERUM 6.9 mg/dL (8.5-10.1); CARBON DIOXIDE 21 mmol/L (21-32); CHLORIDE 102 mmol/L (98-107); CREATININE 1.6 mg/dL (0.6-1.3); GLUCOSE 186 mg/dL (74-106); MAGNESIUM 1.7 mg/dL (1.8-2.4); PHOSPHORUS 3.2 mg/dL (2.5-4.9); POTASSIUM 3.3 mmol/L (3.5-5.1); SODIUM SERUM 136 mmol/L (136-145); TOTAL PROTEIN, SERUM 5.8 g/dL (6.4-8.2); UREA NITROGEN, BLOOD 14 mg/dL (7-18)
[2019-10-09 08:00] VITALS: BP 121/72
[2019-10-09 08:06] LABS: THYROID STIMULATING HORMONE 7.415 uIU/mL (0.358-3.74)
[2019-10-09] MEDS ORDERED: Magnesium 1GM/D5W 100ML PREMIX 100 ML IV SCH (10:00)
[2019-10-09] MEDS ORDERED: POTASSIUM CHLORIDE 10 MEQ TABLET.SA PO ONE (10:30)
[2019-10-09] MEDS: INSULIN REGULAR, HUMAN 100 UNIT/ML 3 ML VIAL SQ PRN ×3 (12:47→22:33)
--- NOTE | 2019-10-09 13:15 | NUR ---
M/S RN NOTES DR. INGRAM AT BEDSIDE, PATIENT SIGNED CONSENT FOR LEFT FOOT EXCISIONAL DEBRIDEMENT. DR. INGRAM DOING EXCISIONAL DEBRIDEMENT ON PATIENT'S LEFT FOOT, TOOK WOUND CULTURES, SENT TO LAB. DRESSING DONE TO LEFT FOOT BY MD. PROCEDURE TOLERATED WELL BY PATIENT.
[2019-10-09] MEDS: ACETAMINOPHEN 325 MG TABLET PO PRN (13:41)
[2019-10-09 16:00] VITALS: BP 119/72
--- NOTE | 2019-10-09 18:40 | NUR ---
M/S RN NOTES PATIENT AWAKE IN BED, NO RESPIRATORY DISTRESS, NO C/O PAIN AT THIS TIME. SKIN WARM TO TOUCH, DRESSING ON THE LEFT FOOT CLEAN AND INTACT. PATIENT'S NEEDS ATTENDED, BED ON LOWEST LOCKED POSITION, CALL LIGHT WITHIN REACH. WILL ENDORSE TO ONCOMING NURSE.
--- NOTE | 2019-10-09 19:00 | NUR ---
RN MS OPENING NOTES RECEIVED PATIENT IN BED AWAKE ALERT AND ORIENTED X3, RESPIRATIONS EVEN AND UNLABORED WITH EQUAL RISE AND FALL OF CHEST, DENIES ANY PAIN OR DISCOMFORT AT THIS TIME OR TO FOOT. LEFT FOOT WITH DRY KERLIX DRESSING C/D/I. OFFLOADED, IV SITE TO RIGHT WRIST #22 G INTACT AND PATENT, NO REDNESS, NO INFILTRATION PRESENT, IVF RUNNING ORDERED, RIGHT UPPER ARM PICC SITE NOTED DRESSING IS INTACT, PER PATIENT " DOES NOT WANT TO BE BOTHERED WITH PICC LINE STATES LEAVE IT ALONE". PATIENT IS AWARE OF PROCEDURE SCHEDULED IN AM AND AWARE OR NPO STATUS AT MIDNIGHT. CONSENTS SIGNED. PATIENT VERBALIZES SHE UNDERSTANDS PROCEDURE. SAFETY PRECAUTIONS IN PLACE, LOW BED AND LOCKED, ORIENTED TO STAFF AND CALL LIGHT AND KEPT WITHIN REACH, OFFERED TOILETING AND FLUIDS, ALL NEEDS ATTENDED WILL CONTINUE TO MONITOR.
[2019-10-09] MEDS: VANCOMYCIN 0.75 GM in IV D5W 250 ML IV SCH (19:22)
[2019-10-09 20:00] VITALS: BP 125/64
--- NOTE | 2019-10-09 20:00 | NUR ---
rn ms notes picc line in place chest xray resulted no changes from previous chest xray picc line intact Right PICC tip is in the right subclavian vein, unchanged compared to prior examination. picc line not being used at this time.upon assessment patient does not want that area touched states " im fine there dont touch it, it doesnt hurt leave it alone" noted dressing is intact and clean. using right wrist #22 g to infuse ivf.
[2019-10-09] MEDS: INSULIN GLARGINE, 100 UNIT/ML CARTRIDGE SQ SCH (22:32)
[2019-10-09] MEDS: ONDANSETRON HCL/PF 4 MG/2 ML VIAL IVP PRN (22:49)
--- NOTE | 2019-10-09 22:52 | NUR ---
rn ms notes patient complaint of nausea. zofran explained and offered,patient agreed ,prn zofran given will continue to monitor.
[2019-10-10] VITALS (7 sets, daily range): BP systolic 110–153; BP diastolic 54–69
[2019-10-10] MEDS: ZOSYN IVPB 2.25 G in IV D5W 50ml IV SCH ×4 (00:22→17:11)
[2019-10-10] MEDS: IV NS 0.9% 1,000 ML IV PRN ×2 (04:05→23:57)
[2019-10-10] MEDS: BLOOD SUGAR DIAGNOSTIC 1 EACH STRIP IN SCH ×5 (06:20→22:09)
[2019-10-10] MEDS: INSULIN REGULAR, HUMAN 100 UNIT/ML 3 ML VIAL SQ PRN ×3 (06:20→22:08)
[2019-10-10 06:27] LABS: BASOPHILS # (AUTO) 0.1 /CMM (0.0-0.2); BASOPHILS % (AUTO) 0.8 % (0.0-2.0); EOSINOPHILS % (AUTO) 1.8 % (0.0-6.0); HEMATOCRIT 25 % (33-45); HEMOGLOBIN 8.6 g/dL (11.5-14.8); LYMPHOCYTES # (AUTO) 0.7 /CMM (0.8-4.8); LYMPHOCYTES % (AUTO) 7.4 % (20.0-44.0); MEAN CORPUSCULAR HGB CONC 34 g/dl (31.0-36.0); MEAN CORPUSCULAR VOLUME 87 fL (82-100); MONOCYTES # (AUTO) 0.9 /CMM (0.1-1.30); MONOCYTES % (AUTO) 9.8 % (2.0-12.0); NEUTROPHILS # (AUTO) 7.6 /CMM (1.8-8.9); NEUTROPHILS % (AUTO) 80.2 % (43.0-81.0); PLATELET COUNT (AUTO) 398 /CMM (150-450); RED BLOOD CELL COUNT(AUTO) 2.87 MIL/uL (4.0-5.2); WHITE BLOOD COUNT (AUTO) 9.5 K/uL (4.3-11.0)
[2019-10-10 06:45] LABS: CALCIUM, SERUM 7.4 mg/dL (8.5-10.1); CARBON DIOXIDE 20 mmol/L (21-32); CHLORIDE 101 mmol/L (98-107); GLUCOSE 175 mg/dL (74-106); MAGNESIUM 2.2 mg/dL (1.8-2.4); POTASSIUM 3.4 mmol/L (3.5-5.1); SODIUM SERUM 132 mmol/L (136-145); UREA NITROGEN, BLOOD 13 mg/dL (7-18)
[2019-10-10 06:51] LABS: FERRITIN 575 ng/mL (8-388)
--- NOTE | 2019-10-10 07:00 | NUR ---
RN MS CLOSING NOTES PATIENT IN BED AWAKE ALERT AND ORIENTED X3, RESPIRATIONS EVEN AND UNLABORED WITH EQUAL RISE AND FALL OF CHEST, DENIES ANY PAIN OR DISCOMFORT AT THIS TIME TO FOOT. LEFT FOOT WITH DRY KERLIX DRESSING C/D/I. OFFLOADED, IV SITE TO RIGHT WRIST #22 G INTACT AND PATENT, NO REDNESS, NO INFILTRATION PRESENT, IVF RUNNING ORDERED, RIGHT UPPER ARM PICC SITE NOTED DRESSING COMING OFF CHANGE DRESSING WITH STERILE PRECAUTIONS,PATIENT IS AWARE OF PROCEDURE SCHEDULED IN AM AND AWARE OF NPO STATUS AT MIDNIGHT. CONSENTS SIGNED. PATIENT VERBALIZES SHE UNDERSTANDS PROCEDURE. SAFETY PRECAUTIONS IN PLACE, LOW BED AND LOCKED, CALL LIGHT KEPT WITHIN REACH, OFFERED TOILETING AND FLUIDS, ALL NEEDS ATTENDED WILL CONTINUE TO MONITOR AND ENDORSE TO NEXT SHIFT.
--- NOTE | 2019-10-10 07:31 | NUR ---
WOUND CARE CONSULT: PT PRESENTS WITH ABILITY TO TURN AND REPOSITION AND SHE IS CONTINENT. DEFER TO DPM/SURGEON FOR LOWER EXTREMITIES. WILL SEE PRN.
[2019-10-10 07:33] LABS: IRON, SERUM 18 ug/dl (50-175); TOTAL IRON BINDING CAPACITY 140 ug/dl (250-450)
--- NOTE | 2019-10-10 07:36 | NUR ---
RN MS NOTES PT IN BED, AWAKE, ALERT AND ORIENTED, DENIES PAIN AT THIS TIME, RESPIRATIONS NORMAL, CALL LIGHT WITHIN REACH, PICKED UP BY O.R. STAFF FOR LEFT FOOT SURGERY, LEFT VIA BED IN STABLE CONDITION.
--- NOTE | 2019-10-10 07:37 | NUR ---
RN MS NOTES PATIENT PICKED UP BY SURGERY STAFF LEFT IN STABLE CONDITION.
[2019-10-10] MEDS ORDERED: LIDOCAINE HCL/MPF 1% 30 ML VIAL IJ ONE (08:00)
[2019-10-10] MEDS ORDERED: BUPIVACAINE 0.5 % PF 150 MG/30 ML VIAL ONE (08:00)
[2019-10-10] MEDS ORDERED: FENTANYL PF 100MCG/2ML AMPUL ONE (08:06)
[2019-10-10] MEDS ORDERED: SEVOFLURANE 250 ML BOTTLE IH ONE (08:21)
[2019-10-10] MEDS ORDERED: BACITRACIN 50000 UNITS/VIAL ONE (08:37)
[2019-10-10] MEDS ORDERED: VANCOMYCIN 1 GM VIAL ONE (08:44)
[2019-10-10] MEDS ORDERED: GENTAMICIN 80 MG/2 ML VIAL ONE (08:49)
[2019-10-10] MEDS: DAKINS QUARTER STRENGTH (0.125%) 480 ML BOTTLE TOP SCH (09:00)
--- NOTE | 2019-10-10 09:00 | NUR ---
RN MS NOTES DAKINS NOT ADMINISTERED AT THIS TIME, PT CURRENTLY ON SURGERY.
[2019-10-10] MEDS ORDERED: ONDANSETRON HCL/PF 4 MG/2 ML VIAL ONE (09:30)
[2019-10-10] MEDS ORDERED: POTASSIUM CHLORIDE 10 MEQ TABLET.SA PO ONE (10:00)
--- NOTE | 2019-10-10 10:01 | NUR ---
RN MS NOTES PT BACK FROM SURGERY, AWAKE, ALERT AND VERBALLY RESPONSIVE, NOTED DRESSING AT LEFT FOOT, INTACT AND DRY, POST OP ORDERS RECEIVED FROM MD, KEPT PT COMFORTABLE, VITALS TAKEN AND RECORDED.
--- NOTE | 2019-10-10 12:00 | NUR ---
RN MS NOTES PT IN BED, AWAKE, ALERT AND ORIENTED, DENIES PAIN, KEPT LEFT FOOT ELEVATED, BLOOD SUGAR CHECKED, PT REFUSED INSULIN ADMINISTRATION, STATED THAT SHE HAS NO APPETITE TO EAT AND REQUESTED ONLY [facility] FOR LUNCH.
[2019-10-10] MEDS ORDERED: MORPHINE SULFATE INJ 2 MG/ML DISP.SYRIN IV PRN (12:30)
--- NOTE | 2019-10-10 13:42 | NUR ---
RN MS NOTES PT SEEN AND EXAMINED BY DR. BHAKTA, PLAN OF CARE DISCUSSED WITH PT, VERBALIZED UNDERSTANDING.
[2019-10-10] MEDS: FERROUS SULFATE (325 MG) 325 MG/TAB TABLET PO SCH (16:29)
[2019-10-10] MEDS: VANCOMYCIN 0.75 GM in IV D5W 250 ML IV SCH (18:00)
--- NOTE | 2019-10-10 18:02 | NUR ---
RN MS NOTES VANCOMYCIN IV NOT GIVEN, VANCO TROUGH IS 31, PHARMACY INFORMED.
--- NOTE | 2019-10-10 18:04 | NUR ---
RN MS NOTES PT IN BED, AWAKE, ALERT AND ORIENTED, NO COMPLAINT OF PAIN OR ANY DISCOMFORT, NOT IN DISTRESS, IV FLUIDS INFUSING WELL, PM MEDS GIVEN, ASSISTED WITH MEALS, KEPT LEFT LEG ELEVATED, NWB ON LEFT FOOT NOTED, ALL NEEDS ATTENDED.
--- NOTE | 2019-10-10 19:00 | NUR ---
MS RN OPENING NOTES Received patient asleep on Horton's position on bed. On RA, no SOB/respiratory distress noted at this time. No s/sx of discomfort noted. Kept on bed clean, dry and comfortable. On fall and aspiration precautions. Call light within easy reach. Will continue to monitor accordingly.
[2019-10-10] MEDS: INSULIN GLARGINE, 100 UNIT/ML CARTRIDGE SQ SCH (22:07)
[2019-10-11] MEDS: ZOSYN IVPB 2.25 G in IV D5W 50ml IV SCH ×5 (00:42→23:50)
[2019-10-11 06:23] LABS: BASOPHILS % (AUTO) 0.5 % (0.0-2.0); EOSINOPHILS % (AUTO) 0.1 % (0.0-6.0); HEMATOCRIT 25 % (33-45); HEMOGLOBIN 8.4 g/dL (11.5-14.8); LYMPHOCYTES # (AUTO) 0.7 /CMM (0.8-4.8); LYMPHOCYTES % (AUTO) 7.5 % (20.0-44.0); MEAN CORPUSCULAR HGB CONC 34 g/dl (31.0-36.0); MEAN CORPUSCULAR VOLUME 87 fL (82-100); MONOCYTES # (AUTO) 0.7 /CMM (0.1-1.30); NEUTROPHILS # (AUTO) 7.5 /CMM (1.8-8.9); NEUTROPHILS % (AUTO) 83.9 % (43.0-81.0); PLATELET COUNT (AUTO) 401 /CMM (150-450); RED BLOOD CELL COUNT(AUTO) 2.86 MIL/uL (4.0-5.2); WHITE BLOOD COUNT (AUTO) 8.9 K/uL (4.3-11.0)
--- NOTE | 2019-10-11 06:36 | NUR ---
MS RN CLOSING NOTES Patient asleep, easily awaken. On RA, no SOB/respiratory distress noted. Denies any discomfort at this time. Able to ambulate to bathroom with walker with minimal assist. All due meds given as ordered. All nursing needs attended. Kept on bed clean, dry and comfortable. Call light within easy reach. Endorsed.
[2019-10-11 07:08] LABS: CALCIUM, SERUM 7.3 mg/dL (8.5-10.1); CARBON DIOXIDE 21 mmol/L (21-32); CHLORIDE 105 mmol/L (98-107); CREATININE 1.8 mg/dL (0.6-1.3); GLUCOSE 273 mg/dL (74-106); MAGNESIUM 2.1 mg/dL (1.8-2.4); PHOSPHORUS 3.2 mg/dL (2.5-4.9); SODIUM SERUM 136 mmol/L (136-145); UREA NITROGEN, BLOOD 17 mg/dL (7-18)
[2019-10-11] MEDS: INSULIN REGULAR, HUMAN 100 UNIT/ML 3 ML VIAL SQ PRN ×3 (07:18→17:40)
--- NOTE | 2019-10-11 07:30 | NUR ---
RN MS NOTES PT IN BED, AWAKE, ALERT AND ORIENTED, NO COMPLAINT OF PAIN, BREATHING PATTERN NORMAL, CALL LIGHT KEPT WITHIN REACH, KEPT [employer] BED, KEPT LEFT FOOT ELEVATED, NEEDS ATTENDED.
[2019-10-11 08:00] VITALS: BP 122/54
[2019-10-11] MEDS: FERROUS SULFATE (325 MG) 325 MG/TAB TABLET PO SCH ×2 (08:19→17:05)
[2019-10-11] MEDS: DAKINS QUARTER STRENGTH (0.125%) 480 ML BOTTLE TOP SCH (08:20)
[2019-10-11] MEDS: BLOOD SUGAR DIAGNOSTIC 1 EACH STRIP IN SCH ×3 (11:51→21:23)
--- NOTE | 2019-10-11 12:12 | NUR ---
RN MS NOTES PT AWAKE, ALERT AND ORIENTED, NO COMPLAINT OF PAIN, RESPIRATIONS NORMAL, IV FLUIDS INFUSING WELL, ASSISTED TO BATHROOM NEEDED, DUE MEDS GIVEN ORDERED, SEEN BY DR. BHAKTA, NEEDS ATTENDED.
[2019-10-11] MEDS: SOD FERRIC GLUC 125 MG in IV NS 0.9% 100 ML IV SCH (14:07)
[2019-10-11 16:00] VITALS: BP 115/57
[2019-10-11] MEDS: IV NS 0.9% 1,000 ML IV PRN (16:21)
[2019-10-11] MEDS: PROSOURCE / PROSTAT (PYXIS) 30 ML UDC PO SCH (17:05)
[2019-10-11] MEDS: ASCORBIC ACID 500 MG TABLET PO SCH (17:05)
[2019-10-11] MEDS: ACETAMINOPHEN 325 MG TABLET PO PRN (17:05)
[2019-10-11] MEDS: ZINC SULFATE 220 MG CAPSULE PO SCH (17:05)
[2019-10-11] MEDS ORDERED: VANCOMYCIN 500 MG in IV D5W 100 ML IV SCH (18:00)
[2019-10-11 19:00] VITALS: BP 123/60
--- NOTE | 2019-10-11 19:02 | NUR ---
MS RN NOTES PATIENT ALERT AND AWAKE CONVERSING WITH FRIENDS AT BEDSIDE. HOB ELEVATED. NO S/S OF RESPIRATORY DISTRESS. DENIES ANY C/O PAIN NOR DISCOMFORT AT THIS TIME. WOUND CARE DONE MAREN WELL TO LEFT FOOT. RIGHT WRIST # 22 SL INTACT AND PATENT. CECILIO PICC LINE DOUBLE LUMEN INTACT AND PATENT INFUSING NS @ 75ML/HR MAREN WEL. BED IN LOWEST POSITION, LOCKED. BED ALARM ON. BED SIDERAILS UP X2. CALL LIGHT WITHIN REACH. ABLE TO VERBALIZE NEEDS. IN NO APPARENT DISTRESS.
--- NOTE | 2019-10-11 19:30 | NUR ---
RN NOTES RECEIVED PT. AWAKE ON BED, A/OX2-3 , PORTUGUESE SPEAKING BUT SPEAK LITTLE BIT OF IVORIAN, DR. INGRAM CAME AND TALK TO THE PT. NO NEW ORDER WAS GIVEN, PICC CHANNING IN PLACE, DRY AND INTACT, CALL LIGHT WITHIN REACH, SIDERAILSUPX2, CONTINUE TO MONITOR
[2019-10-11 20:00] VITALS: BP 123/60
[2019-10-11] MEDS: INSULIN GLARGINE, 100 UNIT/ML CARTRIDGE SQ SCH (21:30)
--- NOTE | 2019-10-11 22:16 | NUR ---
RN NOTES PT.'S BLOOD SUGAR WAS -93, PT. REFUSED LANTUS
[2019-10-12] MEDS: IV NS 0.9% 1,000 ML IV PRN (04:21)
[2019-10-12] MEDS: ZOSYN IVPB 2.25 G in IV D5W 50ml IV SCH ×4 (05:30→23:34)
--- NOTE | 2019-10-12 06:52 | NUR ---
RN NOTES AWAKE, DENIES PAIN, NO SOB DRESSING ON THE LEFT FOOT DRY AND INTACT, BED IN LOW POSITION, PT. NEEDS ATTENDED
[2019-10-12 07:00] LABS: BASOPHILS # (AUTO) 0.1 /CMM (0.0-0.2); BASOPHILS % (AUTO) 1.1 % (0.0-2.0); EOSINOPHILS % (AUTO) 3.2 % (0.0-6.0); HEMATOCRIT 24 % (33-45); HEMOGLOBIN 8.2 g/dL (11.5-14.8); LYMPHOCYTES # (AUTO) 0.8 /CMM (0.8-4.8); LYMPHOCYTES % (AUTO) 9.7 % (20.0-44.0); MEAN CORPUSCULAR HGB CONC 34 g/dl (31.0-36.0); MEAN CORPUSCULAR VOLUME 87 fL (82-100); MONOCYTES # (AUTO) 0.6 /CMM (0.1-1.30); MONOCYTES % (AUTO) 7.4 % (2.0-12.0); NEUTROPHILS # (AUTO) 6.7 /CMM (1.8-8.9); NEUTROPHILS % (AUTO) 78.6 % (43.0-81.0); PLATELET COUNT (AUTO) 404 /CMM (150-450); RED BLOOD CELL COUNT(AUTO) 2.74 MIL/uL (4.0-5.2); WHITE BLOOD COUNT (AUTO) 8.6 K/uL (4.3-11.0)
[2019-10-12 07:11] LABS: CALCIUM, SERUM 7.3 mg/dL (8.5-10.1); CARBON DIOXIDE 21 mmol/L (21-32); CHLORIDE 108 mmol/L (98-107); CREATININE 1.8 mg/dL (0.6-1.3); GLUCOSE 89 mg/dL (74-106); POTASSIUM 3.7 mmol/L (3.5-5.1); SODIUM SERUM 139 mmol/L (136-145); UREA NITROGEN, BLOOD 12 mg/dL (7-18)
--- NOTE | 2019-10-12 07:30 | NUR ---
MS/RN NOTE THE PATIENT IS RECEIVED IN BED. ALERT AND ORIENTED X3. DENIES PAIN. RECEIVING OXYGEN AT 2L/MIN VIA NASAL CANNULA AND DENIES SOB. RESPIRATION REGULAR AND UNLABORED. CECILIO PICC LINE PATIENT AND NS INFUSING AT 75ML/HR AND NO S/S INFILTRATION NOTED. RIGHT WRIST G 22 PATENT AND SALINE LOCKED. BED LOW AND LOCKED. SIDE RAILS UP X3. CALL LIGHT WITHIN REACH. WILL CONTINUE TO MONITOR.
[2019-10-12] MEDS: BLOOD SUGAR DIAGNOSTIC 1 EACH STRIP IN SCH ×4 (07:38→21:11)
--- NOTE | 2019-10-12 07:39 | NUR ---
MS/RN NOTE 0730 BLOOD SUGAR CHECK IS NOT DONE DUE TO PATIENT REFUSAL. THE PATIENT`S BLOOD SUGAR WAS CHECKED TODAY MORNING AT 0623.
[2019-10-12 08:00] VITALS: BP 129/61
[2019-10-12] MEDS: MULTIVIT W/MINERALS 1 TAB TABLET PO SCH (08:21)
[2019-10-12] MEDS: FERROUS SULFATE (325 MG) 325 MG/TAB TABLET PO SCH ×2 (08:21→17:00)
[2019-10-12] MEDS: glipiZIDE 5 MG TABLET PO SCH (08:21)
[2019-10-12] MEDS: DAKINS QUARTER STRENGTH (0.125%) 480 ML BOTTLE TOP SCH (08:28)
[2019-10-12] MEDS: SOD FERRIC GLUC 125 MG in IV NS 0.9% 100 ML IV SCH (14:16)
[2019-10-12 16:00] VITALS: BP 139/68
[2019-10-12] MEDS: ZINC SULFATE 220 MG CAPSULE PO SCH (18:00)
[2019-10-12] MEDS: ASCORBIC ACID 500 MG TABLET PO SCH (18:00)
[2019-10-12] MEDS: PROSOURCE / PROSTAT (PYXIS) 30 ML UDC PO SCH (18:00)
--- NOTE | 2019-10-12 18:26 | NUR ---
MS/RN NOTE THE PATIENT IS ALERT AND ORIENTED X3. DENIES PAIN. IN ROOM AIR AND SATURATION IS AT 96%. DENIES SOB. RESPIRATION REGULAR AND UNLABORED. RIGHT WRIST G 22 PATENT AND SALINE LOCKED. CECILIO PICC LINE PATENT AND NS INFUSING AT 75ML/HR AND NO S/S INFILTRATION NOTED. BED LOW AND LOCKED. SIDE RAILS UP X3. CALL LIGHT WITHIN REACH. WILL ENDORSE TO RN INTENSIVE CARE UNIT.
--- NOTE | 2019-10-12 18:49 | NUR ---
MS/RN NOTE RECEIVED NEW ORDER FROM JENNA BHAKTA TO DISCONTINUE IV FLUID NS 75ML/HR AND START NEW ORDER OF D5 1/2 NS AT 75ML/HR PRN. THE ORDERS ARE READ BACK, VERIFIED. NOTED AND CARRIED OUT.
[2019-10-12] MEDS: IV D5/0.45 NACL 1,000 ML IV PRN (18:58)
--- NOTE | 2019-10-12 19:30 | NUR ---
RN NOTES RECEIVED PT. AWAKE ON BED, DRESSING ON THE LEFT FOOT DRY AND INTACT, A/OX3, MALTESE SPEAKING, PICC CHANNING IN PLACE DRY AND INTACT, CALL LIGHT WITHIN REACH, SIDERAILSUPX2, CONTINUE TO MONITOR
[2019-10-12 20:00] VITALS: BP 135/72
[2019-10-12] MEDS: INSULIN GLARGINE, 100 UNIT/ML CARTRIDGE SQ SCH (21:11)
--- NOTE | 2019-10-12 22:00 | NUR ---
RN NOTES PT. BLOOD SUGAR-79- PT. REFUSED LANTUS AND REFUSED TO EAT
--- NOTE | 2019-10-12 23:00 | NUR ---
RN NOTES SPOKE TO SHAHZAD HERRERA'S NEXT OF KIN AND INFORMED ME THAT SHE'S COMING EARLY TO SIGN THE CONSENT
[2019-10-13] VITALS (10 sets, daily range): BP systolic 136–163; BP diastolic 66–82
[2019-10-13] MEDS: ZOSYN IVPB 2.25 G in IV D5W 50ml IV SCH ×3 (05:09→18:26)
--- NOTE | 2019-10-13 07:00 | NUR ---
RN NOTES AWAKE, DENIES PAIN, NO SOB, WAITING FOR SHAHZAD GRIER FOR THE CONSENT, MORNING CARE RENDERED, CALL LIGHT WITHIN REACH, ANASTASIAAILSUPX2, PT. NEEDS ATTENDED
[2019-10-13 07:11] LABS: BASOPHILS # (AUTO) 0.1 /CMM (0.0-0.2); BASOPHILS % (AUTO) 1.3 % (0.0-2.0); EOSINOPHILS % (AUTO) 6.8 % (0.0-6.0); HEMATOCRIT 23 % (33-45); LYMPHOCYTES # (AUTO) 0.9 /CMM (0.8-4.8); LYMPHOCYTES % (AUTO) 11.6 % (20.0-44.0); MEAN CORPUSCULAR HGB CONC 34 g/dl (31.0-36.0); MEAN CORPUSCULAR VOLUME 87 fL (82-100); MONOCYTES # (AUTO) 0.5 /CMM (0.1-1.30); MONOCYTES % (AUTO) 6.3 % (2.0-12.0); NEUTROPHILS # (AUTO) 5.7 /CMM (1.8-8.9); PLATELET COUNT (AUTO) 396 /CMM (150-450); RED BLOOD CELL COUNT(AUTO) 2.68 MIL/uL (4.0-5.2); WHITE BLOOD COUNT (AUTO) 7.7 K/uL (4.3-11.0)
[2019-10-13] MEDS ORDERED: ANESTHESIA TRAY IN PYXIS 1 EA TRAY MC ONE (07:15)
--- NOTE | 2019-10-13 07:30 | NUR ---
MS/RN NOTE THE PATIENT IS RECEIVED IN BED. ALERT AND ORIENTED X3. DENIES PAIN. OXYGEN SATURATION IN ROOM AIR IS AT 97%. DENIES SOB. RESPIRATION REGULAR AND UNLABORED. PATIENT IN NO APPARENT DISTRESS. CECILIO PICC LINE PATENT AND D5 1/2 NS INFUSING AT 75ML/HR AND NO S/S INFILTRATION NOTED. RIGHT WRIST G 22 PATENT AND SALINE LOCKED. PATIENT NPO SINCE MIDNIGHT. BED LOW AND LOCKED. SIDE RAILS UP X3. CALL LIGHT WITHIN REACH. WILL CONTINUE TO MONITOR.
[2019-10-13] MEDS: BLOOD SUGAR DIAGNOSTIC 1 EACH STRIP IN SCH ×4 (07:31→21:37)
[2019-10-13 07:33] LABS: CREATINE KINASE, TOTAL 14 U/L (26-192)
[2019-10-13 07:36] LABS: ALANINE AMINOTRANSFERASE 23 U/L (12-78); ALBUMIN 1.6 g/dL (3.4-5.0); ALKALINE PHOSPHATASE 76 U/L (46-116); ASPARTATE AMINOTRANSFERASE 28 U/L (15-37); BILIRUBIN,TOTAL 0.3 mg/dL (0.2-1.0); CALCIUM, SERUM 7.4 mg/dL (8.5-10.1); CARBON DIOXIDE 21 mmol/L (21-32); CHLORIDE 107 mmol/L (98-107); CREATININE 1.7 mg/dL (0.6-1.3); GLUCOSE 104 mg/dL (74-106); MAGNESIUM 1.7 mg/dL (1.8-2.4); PHOSPHORUS 2.7 mg/dL (2.5-4.9); POTASSIUM 3.6 mmol/L (3.5-5.1); SODIUM SERUM 138 mmol/L (136-145); TOTAL PROTEIN, SERUM 5.5 g/dL (6.4-8.2); UREA NITROGEN, BLOOD 8 mg/dL (7-18)
[2019-10-13] MEDS ORDERED: LIDOCAINE HCL/MPF 1% 30 ML VIAL IJ ONE (07:49)
[2019-10-13] MEDS ORDERED: BUPIVACAINE 0.5 % PF 150 MG/30 ML VIAL ONE (07:49)
[2019-10-13] MEDS ORDERED: GENTAMICIN 80 MG/2 ML VIAL IV ONE (08:20)
[2019-10-13] MEDS ORDERED: BACITRACIN 50000 UNITS/VIAL ONE (08:21)
[2019-10-13] MEDS: MULTIVIT W/MINERALS 1 TAB TABLET PO SCH (08:25)
[2019-10-13] MEDS: FERROUS SULFATE (325 MG) 325 MG/TAB TABLET PO SCH ×2 (08:25→16:43)
[2019-10-13] MEDS: DAKINS QUARTER STRENGTH (0.125%) 480 ML BOTTLE TOP SCH (08:25)
[2019-10-13] MEDS: glipiZIDE 5 MG TABLET PO SCH (08:25)
--- NOTE | 2019-10-13 08:25 | NUR ---
MS/RN NOTE DAKIN`S SOLUTION IS NOT SCANNED OR USED DUE TO PATIENT BEING IN OR AT THIS TIME.
[2019-10-13 09:28] LABS: BAND % (MANUAL) 2 % (0.0-5.0); EOSINOPHILS % (MANUAL) 3 % (0-4); LYMPHOCYTES % (MANUAL) 10 % (16-48); MONOCYTES % (MANUAL) 10 % (0-11.0); NEUTROPHILS % (MANUAL) 75 (42-76)
--- NOTE | 2019-10-13 09:35 | NUR ---
MS/RN NOTE RECEIVED THE PATIENT BACK FROM OR. THE PATIENT IS ALERT AND ORIENTED X3. DENIES PAIN. RECEIVING OXYGEN AT 2L/MIN VIA NASAL CANNULA AND DENIES SOB. RESPIRATION REGULAR AND UNLABORED. DENIES PAIN. LEFT FOOT DRESSING ON. PATIENT DENIES NUMBNESS OR TINGLING. THE PATIENT IN NO APPARENT DISTRESS. WILL CONTINUE TO MONITOR.
[2019-10-13] MEDS: Magnesium 1GM/D5W 100ML PREMIX 100 ML IV SCH ×2 (11:37→16:36)
--- NOTE | 2019-10-13 11:58 | NUR ---
MS/RN NOTE PRIOR 10/13/19 PROCEDURE THE PATIENT HAD AN ORDER OF LEFT FOOT NWB, HOWEVER, AFTER THE PROCEDURE THE DR WROTE AN ORDER OF REMAIN PARTIAL WEIGHT BEARING WITH SURGICAL SHOW. CALLED DR INGRAM TO CONFIRM WEIGHT BEARING ORDER. PER DR ORDER NOW THE ORDER IS LEFT LOWER EXTREMITY PARTIAL WEIGHT BEARING WITH SURGICAL SHOE FOR TRANSFERS FROM BED TO CHAIR AND VIA VERSA. READ BACK, VERIFIED. NOTED AND CARRIED OUT. left lower extremity partial weight bearing with surgical shoe for transfers from bed to chair and via versa
[2019-10-13] MEDS: ONDANSETRON HCL/PF 4 MG/2 ML VIAL IVP PRN (13:40)
[2019-10-13] MEDS: SOD FERRIC GLUC 125 MG in IV NS 0.9% 100 ML IV SCH (14:44)
[2019-10-13] MEDS: IV D5/0.45 NACL 1,000 ML IV PRN (16:42)
[2019-10-13] MEDS: PROSOURCE / PROSTAT (PYXIS) 30 ML UDC PO SCH (18:00)
[2019-10-13] MEDS: ZINC SULFATE 220 MG CAPSULE PO SCH (18:00)
[2019-10-13] MEDS: ASCORBIC ACID 500 MG TABLET PO SCH (18:00)
--- NOTE | 2019-10-13 19:10 | NUR ---
MS RN NOTES: RECEIVED PATIENT Patient is awake, tolerating room air, denies shortness of breath. Left foot dressing C/D/I denies pain. IVF infusing. Fall, skin precaution maintained.
--- NOTE | 2019-10-13 19:24 | NUR ---
MS/RN NOTE BLOOD SUGAR IS 271. PATIENT REFUSED INSULIN DESPITE EXPLAINING RISKS AND BENEFITS.
--- NOTE | 2019-10-13 19:27 | NUR ---
MS/RN NOTE THE PATIENT IS ALERT AND ORIENTED X3. DENIES PAIN. IN ROOM AIR AND SATURATION IS AT 95%. DENIES SOB. RESPIRATION REGULAR AND UNLABORED. CECILIO PICC LINE PATIENT AND D5 1/2 NS INFUSING AT 75ML/HR AND NO S/S INFILTRATION NOTED. LEFT FOOT DRESSING INTACT. BED LOW AND LOCKED. SIDE RAILS UP X3. CALL LIGHT WITHIN REACH. WILL CONTINUE TO MONITOR.
[2019-10-13] MEDS: INSULIN GLARGINE, 100 UNIT/ML CARTRIDGE SQ SCH (21:40)
[2019-10-13] MEDS: INSULIN REGULAR, HUMAN 100 UNIT/ML 3 ML VIAL SQ PRN (21:42)
[2019-10-14] MEDS: ZOSYN IVPB 2.25 G in IV D5W 50ml IV SCH ×4 (00:28→17:36)
[2019-10-14 06:07] LABS: PTH, INTACT 25 pg/mL (15-65)
[2019-10-14] MEDS: BLOOD SUGAR DIAGNOSTIC 1 EACH STRIP IN SCH ×4 (06:40→22:28)
--- NOTE | 2019-10-14 06:47 | NUR ---
MS RN: REPORT Patient in bed, stable on room air. Left foot dressing C/D/I no s/s of bleeding, denies pain. LLE partial WB with surgical shoe per Podiatry. IVF infusing, IV antibiotic as scheduled, afebrile overnight. Fall, skin precaution maintained.
[2019-10-14 07:14] LABS: CALCIUM, SERUM 7.5 mg/dL (8.5-10.1); CARBON DIOXIDE 22 mmol/L (21-32); CHLORIDE 104 mmol/L (98-107); CREATININE 1.7 mg/dL (0.6-1.3); GLUCOSE 246 mg/dL (74-106); MAGNESIUM 2.3 mg/dL (1.8-2.4); POTASSIUM 3.6 mmol/L (3.5-5.1); SODIUM SERUM 135 mmol/L (136-145); UREA NITROGEN, BLOOD 9 mg/dL (7-18)
[2019-10-14] MEDS: INSULIN REGULAR, HUMAN 100 UNIT/ML 3 ML VIAL SQ PRN ×2 (07:21→22:41)
[2019-10-14 08:00] VITALS: BP 138/68
--- NOTE | 2019-10-14 08:00 | NUR ---
MS RN OPENING NOTES Received Patient awake and resting in bed. A/O x 3, Yakut speaking. VS stable with no acute distress. Breathing even and unlabored on room air with no respiratory distress. Denies pain. No signs and symptoms of pain. 22g PIV on Right Wrist clean, intact, patent and flushing well. CECILIO PICC Line clean, intact, patent and flushing well with D5 1/2 NS infusing at 75ml/hr. Safety precautions in place. Bed locked and set to lowest position with side rails x 2 up. All needs rendered at this time. Call light within reach. Will continue to monitor.
--- NOTE | 2019-10-14 09:07 | NUR ---
MS RN NOTES Patient taken to MRI at this time. Patient in stable condition.
--- NOTE | 2019-10-14 09:46 | NUR ---
MS RN NOTES Patient returned from MRI at this time. Patient in stable condition. Will continue to monitor.
[2019-10-14] MEDS: MULTIVIT W/MINERALS 1 TAB TABLET PO SCH (10:26)
[2019-10-14] MEDS: glipiZIDE 5 MG TABLET PO SCH (10:26)
[2019-10-14] MEDS: FERROUS SULFATE (325 MG) 325 MG/TAB TABLET PO SCH ×2 (10:26→17:36)
[2019-10-14] MEDS: DAKINS QUARTER STRENGTH (0.125%) 480 ML BOTTLE TOP SCH (10:28)
--- NOTE | 2019-10-14 12:20 | NUR ---
MS RN NOTES BS-45 Patient awake and resting comfortable in bed. A/O x 4. No acute distress. Rechecked BS-43. Notified Ana Rosa LEAD PROJECT ENGINEER who was at bedside. Per LEAD PROJECT ENGINEER, will order STAT Glucose via peripheral. Patient in stable condition at this time. Will continue to monitor.
[2019-10-14] MEDS: SOD FERRIC GLUC 125 MG in IV NS 0.9% 100 ML IV SCH (14:45)
[2019-10-14 16:00] VITALS: BP 156/76
[2019-10-14] MEDS: IV D5/0.45 NACL 1,000 ML IV PRN (17:37)
[2019-10-14] MEDS: ZINC SULFATE 220 MG CAPSULE PO SCH (17:37)
[2019-10-14] MEDS: ASCORBIC ACID 500 MG TABLET PO SCH (17:37)
[2019-10-14] MEDS: PROSOURCE / PROSTAT (PYXIS) 30 ML UDC PO SCH (17:37)
--- NOTE | 2019-10-14 19:15 | NUR ---
MS RN CLOSING NOTES Patient awake and resting in bed. A/O x 3, French speaking. VS stable with no acute distress. Breathing even and unlabored on room air with no respiratory distress. Denies pain. No signs and symptoms of pain. 22g PIV on Right Wrist clean, intact, patent and flushing well. CECILIO PICC Line clean, intact, patent and flushing well with D5 1/2 NS infusing at 75ml/hr. Safety precautions in place. Bed locked and set to lowest position with side rails x 2 up. All needs rendered at this time. Call light within reach. Will endorse plan of care to oncoming shift.
[2019-10-14 20:00] VITALS: BP 141/68
--- NOTE | 2019-10-14 20:36 | NUR ---
REPORTS RECEIVED FROM EVY. PATIENT IS IN BED, ASLEEP AROUSABLE, A/O X3. NO SOB NOTED. NO COMPLAIN OF PAIN. BED IN LOWEST AND LOCKED POSITION. BED ALARM ON. CALL LIGHT WITHIN REACH.
[2019-10-14] MEDS: INSULIN GLARGINE, 100 UNIT/ML CARTRIDGE SQ SCH (22:39)
[2019-10-15] MEDS: ZOSYN IVPB 2.25 G in IV D5W 50ml IV SCH ×4 (00:23→17:07)
--- NOTE | 2019-10-15 06:55 | NUR ---
BLOOD SUGAR RESULT=59, ORANGE JUICE 125ML GIVEN. PATIENT IS AWAKE A/O X4, ASYMPTOMATIC.
--- NOTE | 2019-10-15 07:28 | NUR ---
MS RN CLOSING NOTES: PATIENT IS RESTING IN BED, A/O X4 AWAKE, NO SOB NOTED. NO COMPLAIN OF PAIN. CALL LIGHT WITHIN REACH. BED IN LOWEST AND LOCKED POSITION. BED ALARM ON.
[2019-10-15] MEDS: BLOOD SUGAR DIAGNOSTIC 1 EACH STRIP IN SCH ×4 (07:29→23:03)
--- NOTE | 2019-10-15 07:42 | NUR ---
M/S RN OPENING NOTES RECEIVED PT ON BED, A/O X4, RWANDAN SPEAKING ONLY. RESPIRATION EVEN AND NON LABORED WITH NO ACUTE RESPIRATORY DISTRESS. ABD SOFT AND NON DISTENDED WITH ACTIVE BOWEL SOUNDS. DENIES PAIN AND DISCOMFORT. SKIN WARM TO TOUCH AND DRY. BLOOD SUGAR RE-CHECKED WITH 65 RESULT AFTER GIVEN ORANGE JUICE DUE TO 59 BLOOD SUGAR. BLE OFFLOAD, DRESSING INTACT. IV SITE AT RIGHT UPPER ARM PICC LINE WITH D5 1/2 NS AT 75 ML/HR AND RIGHT WRIST H/L, PATENT IN FLUSHING, SITE WITH NO S/SX OF INFILTRATION. CALL LIGHT WITHIN REACH. ALL CONCERNS ATTENDED AT THIS TIME. WILL CONTINUE TO MONITOR CARE.
[2019-10-15 08:00] VITALS: BP 145/75
[2019-10-15] MEDS: MULTIVIT W/MINERALS 1 TAB TABLET PO SCH (08:07)
[2019-10-15] MEDS: FERROUS SULFATE (325 MG) 325 MG/TAB TABLET PO SCH ×2 (08:07→17:07)
[2019-10-15] MEDS: glipiZIDE 5 MG TABLET PO SCH (08:07)
[2019-10-15] MEDS: DAKINS QUARTER STRENGTH (0.125%) 480 ML BOTTLE TOP SCH (08:08)
--- NOTE | 2019-10-15 08:30 | NUR ---
M/S RN NOTES PT SEEN AND EVALUATED BY MARIE WEST. DC PLANNING 10/16/19.PT AWARE.
[2019-10-15] MEDS: IV D5/0.45 NACL 1,000 ML IV PRN ×2 (08:54→22:31)
[2019-10-15 09:22] LABS: BASOPHILS # (AUTO) 0.1 /CMM (0.0-0.2); BASOPHILS % (AUTO) 1.2 % (0.0-2.0); HEMATOCRIT 24 % (33-45); HEMOGLOBIN 8.3 g/dL (11.5-14.8); LYMPHOCYTES # (AUTO) 0.9 /CMM (0.8-4.8); LYMPHOCYTES % (AUTO) 10.6 % (20.0-44.0); MEAN CORPUSCULAR HGB CONC 34 g/dl (31.0-36.0); MEAN CORPUSCULAR VOLUME 87 fL (82-100); MONOCYTES # (AUTO) 0.6 /CMM (0.1-1.30); MONOCYTES % (AUTO) 7.6 % (2.0-12.0); NEUTROPHILS # (AUTO) 6.4 /CMM (1.8-8.9); NEUTROPHILS % (AUTO) 77.6 % (43.0-81.0); PLATELET COUNT (AUTO) 417 /CMM (150-450); RED BLOOD CELL COUNT(AUTO) 2.78 MIL/uL (4.0-5.2); WHITE BLOOD COUNT (AUTO) 8.3 K/uL (4.3-11.0)
[2019-10-15 09:40] LABS: CALCIUM, SERUM 7.4 mg/dL (8.5-10.1); CARBON DIOXIDE 24 mmol/L (21-32); CHLORIDE 104 mmol/L (98-107); CREATININE 1.7 mg/dL (0.6-1.3); POTASSIUM 3.4 mmol/L (3.5-5.1); SODIUM SERUM 136 mmol/L (136-145); UREA NITROGEN, BLOOD 8 mg/dL (7-18)
[2019-10-15 09:50] LABS: GLUCOSE 47 mg/dL (74-106)
--- NOTE | 2019-10-15 10:01 | NUR ---
M/S RN NOTES RECEIVED CRITICAL LAB VALUE FROM [facility] OF LAB, GLUCOSE 47. NOTIFIED MARIE WEST
--- NOTE | 2019-10-15 10:06 | NUR ---
M/S RN NOTES RECEIVED NEW ORDER FROM MARIE DUE TO GLUCOSE CRITICAL LAB VALUE OF 47, DC LANTUS, TO CHANGE SLIDING SCALE OF MILD, INCREASE D5 1/2 NS AT 100 ML/HR. ORDER READ BACK, NOTED AND CARRIED OUT. PT NOTIFIED. ASSESSED PT ON A/OX4, NO PRESENCE OF MENTAL CONFUSION, ABLE TO FF COMMANDS, ABLE TO DO ROM WITH NO DIFFICULTIES. WILL CONTINUE TO MONITOR. ORANGE JUICE OFFERED.
[2019-10-15] MEDS ORDERED: DEXTROSE 50%-WATER 50 ML DISP.SYRIN IV PRN (10:30)
[2019-10-15] MEDS ORDERED: POTASSIUM CHLORIDE 20 MEQ TAB.PRT.SR PO ONE (10:30)
--- NOTE | 2019-10-15 11:15 | NUR ---
M/S RN NOTES RECEIVED A CALL FROM DR INGRAM WITH NEW ORDER TO COLLECT WOUND CULTURE AT LEFT BIG TOE, PT SCHEDULE LEFT FOOT DEBRIDEMENT WITH POSSIBLE WOUND CLOSURE TOMORROW 10/16/19. ORDER READ BACK, NOTED AND CARRIED OUT.
[2019-10-15] MEDS: ONDANSETRON HCL/PF 4 MG/2 ML VIAL IVP PRN (12:59)
--- NOTE | 2019-10-15 13:33 | NUR ---
M/S RN NOTES PT SEEN AND EVALUATED BY DR. HOUSER. SURGERY SCHEDULED TOMORROW (10/16/19) FOR LEFT FOOT DEBRIDEMENT WITH POSSIBLE WOUND CLOSURE AT 12:30 NN.
[2019-10-15] MEDS: SOD FERRIC GLUC 125 MG in IV NS 0.9% 100 ML IV SCH (14:14)
[2019-10-15 16:00] VITALS: BP 122/51
[2019-10-15] MEDS: ZINC SULFATE 220 MG CAPSULE PO SCH (17:07)
[2019-10-15] MEDS: PROSOURCE / PROSTAT (PYXIS) 30 ML UDC PO SCH (17:07)
[2019-10-15] MEDS: ASCORBIC ACID 500 MG TABLET PO SCH (17:07)
--- NOTE | 2019-10-15 18:30 | NUR ---
M/S RN CLOSING NOTES PT A/OX4, RESPONSIVE TO ALL STIMULI. RESPIRATION NOT IN ACUTE DISTRESS. ABD SOFT AND NON DISTENDED, BM WITH BLACK LOOSE STOOLS, WITH BRP. DENIES PAIN AND DISCOMFORT. SKIN WARM TO TOUCH AND DRY. IV SITE AT RIGHT UPPER ARM PICC AND LEFT WRIST #22 PATENT IN FLUSHING, NO INFILTRATION NOTED. CALL LIGHT WITHIN REACH. BED IN LOCKED POSITION, SR X2 UP FOR SAFETY, BEDSIDE COMMODE AND WALKER ABLE TO REACH. SCHEDULED LEFT FOOT DEBRIDEMENT WITH POSSIBLE WOUND CLOSURE ON 10/16/19 AT 1230. ENDORSED PT CARE TO NEXT SHIFT.
--- NOTE | 2019-10-15 19:10 | NUR ---
M/S RN CLOSING NOTES RECEIVED PT IN BED, AWAKE, AND ABLE TO MAKE NEEDS KNOWN. PT A/O X3 TURKMEN SPEAKING. RESPIRATIONS EVEN AND UNLABORED WITH NO S/S OF ACUTE DISTRESS OR SOB NOTED. NO COMPLAINTS OF PAIN AT THIS TIME. PT NOTED WITH IV SITE AT RIGHT UPPER ARM PICC INFUSING D5 1/2 NS @100CC/HR. SAFETY MEASURES IN PLACE WITH BED IN LOWEST LOCKED POSITION WITH SIDE RAILS UP X2. CALL LIGHT WITHIN REACH. WILL CONTINUE TO MONITOR. Addendum: 10/16/19 at 0246 by DU GUTIERREZ RN OPENING NOTE
--- NOTE | 2019-10-15 19:30 | NUR ---
MS RN NOTES PT REFUSED PHOTOS AT THIS TIME. WILL CONTINUE TO MONITOR.
[2019-10-15 20:00] VITALS: BP 151/80
[2019-10-16] MEDS: ZOSYN IVPB 2.25 G in IV D5W 50ml IV SCH ×3 (00:05→12:00)
[2019-10-16 06:31] LABS: BASOPHILS # (AUTO) 0.1 /CMM (0.0-0.2); BASOPHILS % (AUTO) 1.7 % (0.0-2.0); EOSINOPHILS % (AUTO) 3.1 % (0.0-6.0); HEMATOCRIT 26 % (33-45); HEMOGLOBIN 8.6 g/dL (11.5-14.8); LYMPHOCYTES # (AUTO) 0.9 /CMM (0.8-4.8); LYMPHOCYTES % (AUTO) 11.8 % (20.0-44.0); MEAN CORPUSCULAR HGB CONC 34 g/dl (31.0-36.0); MEAN CORPUSCULAR VOLUME 87 fL (82-100); MONOCYTES # (AUTO) 0.6 /CMM (0.1-1.30); MONOCYTES % (AUTO) 8.5 % (2.0-12.0); NEUTROPHILS # (AUTO) 5.4 /CMM (1.8-8.9); NEUTROPHILS % (AUTO) 74.9 % (43.0-81.0); PLATELET COUNT (AUTO) 416 /CMM (150-450); RED BLOOD CELL COUNT(AUTO) 2.93 MIL/uL (4.0-5.2); WHITE BLOOD COUNT (AUTO) 7.2 K/uL (4.3-11.0)
--- NOTE | 2019-10-16 06:53 | NUR ---
MS RN NOTES PT IN BED, AWAKE, AND ABLE TO MAKE NEEDS KNOWN. PT A/O X3 NICARAGUAN SPEAKING. RESPIRATIONS EVEN AND UNLABORED WITH NO S/S OF ACUTE DISTRESS OR SOB NOTED THROUGHOUT SHIFT. NO COMPLAINTS OF PAIN AT THIS TIME. PT NOTED WITH IV SITE AT RIGHT UPPER ARM PICC INFUSING D5 1/2 NS @100CC/HR. PT KEPT CLEAN, DRY, AND COMFORTABLE. SAFETY MEASURES IN PLACE WITH BED IN LOWEST LOCKED POSITION WITH SIDE RAILS UP X2. CALL LIGHT WITHIN REACH. WILL ENDORSE TO ONCOMING NURSE FOR TREY.
[2019-10-16 07:04] LABS: CALCIUM, SERUM 7.5 mg/dL (8.5-10.1); CARBON DIOXIDE 24 mmol/L (21-32); CHLORIDE 105 mmol/L (98-107); CREATININE 1.6 mg/dL (0.6-1.3); GLUCOSE 116 mg/dL (74-106); POTASSIUM 3.1 mmol/L (3.5-5.1); SODIUM SERUM 140 mmol/L (136-145); UREA NITROGEN, BLOOD 8 mg/dL (7-18)
[2019-10-16] MEDS: BLOOD SUGAR DIAGNOSTIC 1 EACH STRIP IN SCH ×4 (07:24→21:44)
--- NOTE | 2019-10-16 07:25 | NUR ---
MS RN NOTES RECEIVED PATIENT IN BED RESTING COMFORTABLY IN MODERATE HIGH BACK REST. A/O X3 INDONESIAN SPEAKING. NO S/S OF ACUTE DISTRESS NOTED AT THIS TIME. NO COMPLAINTS OF PAIN AT THIS TIME. IV FLUIDS ON RIGHT UPPER ARM PICC INFUSING D5 1/2 NS @100CC/HR. SCHEDULED FOR SURGERY TODAY. SAFETY MEASURES IN PLACE WITH BED IN LOWEST LOCKED POSITION WITH SIDE RAILS UP X2. CALL LIGHT WITHIN REACH. WILL CONTINUE TO MONITOR.
[2019-10-16 08:00] VITALS: BP 144/72
[2019-10-16] MEDS: FERROUS SULFATE (325 MG) 325 MG/TAB TABLET PO SCH ×2 (08:21→17:02)
[2019-10-16] MEDS: glipiZIDE 5 MG TABLET PO SCH (08:21)
[2019-10-16] MEDS: MULTIVIT W/MINERALS 1 TAB TABLET PO SCH (08:22)
[2019-10-16 08:26] LABS: *SPE A/G RATIO 0.7 (0.7-1.7); *SPE ALBUMIN 2.1 g/dL (2.9-4.4); *SPE ALPHA-1-GLOBULIN 0.4 g/dL (0.0-0.4); *SPE BETA GLOBULIN 0.7 g/dL (0.7-1.3); *SPE GLOBULIN, TOTAL 3.1 g/dL (2.2-3.9); *SPE M-SPIKE Not Observed g/dL (Not Observed)
[2019-10-16] MEDS: POTASSIUM CHLORIDE 20 MEQ TAB.PRT.SR PO ONE ×2 (08:30→14:02)
[2019-10-16] MEDS: DAKINS QUARTER STRENGTH (0.125%) 480 ML BOTTLE TOP SCH (08:50)
--- NOTE | 2019-10-16 10:56 | NUR ---
RN NOTES PICKED UP BY 2 HOSPITAL STAFF FOR SURGERY, CONSENT SIGNED, NO SIGNS OF ACUTE DISTRESS NOTED.
[2019-10-16] MEDS ORDERED: BUPIVACAINE 0.5 % PF 150 MG/30 ML VIAL ONE (11:10)
[2019-10-16] MEDS ORDERED: LIDOCAINE HCL/MPF 1% 30 ML VIAL IJ ONE (11:10)
[2019-10-16] MEDS ORDERED: BACITRACIN 50000 UNITS/VIAL ONE (11:11)
[2019-10-16] MEDS ORDERED: GENTAMICIN 80 MG/2 ML VIAL ONE (11:17)
--- NOTE | 2019-10-16 13:30 | NUR ---
RN NOTES PATIENT CAME BACK FROM SURGERY, PER DR. INGRAM TO RESUME DIET AND MEDICATION, NO SIGNS OF DISTRESS NOTED, WILL CONTINUE TO MONITOR.
--- NOTE | 2019-10-16 14:00 | NUR ---
RN NOTES OFFERED FOOD AND MEDICATION, PATIENT REFUSED AT THIS TIME.
[2019-10-16] MEDS: IV D5/0.45 NACL 1,000 ML IV PRN (14:02)
[2019-10-16] MEDS: MEROPENEM 500 MG in IV NS 0.9% 50 ML IV SCH (15:45)
[2019-10-16 16:00] VITALS: BP 161/77
[2019-10-16] MEDS: ZINC SULFATE 220 MG CAPSULE PO SCH (17:02)
[2019-10-16] MEDS: ASCORBIC ACID 500 MG TABLET PO SCH (17:02)
[2019-10-16] MEDS: PROSOURCE / PROSTAT (PYXIS) 30 ML UDC PO SCH (17:03)
--- NOTE | 2019-10-16 17:45 | NUR ---
RN NOTES PATIENT REFUSED HER INSULIN, EXPLAINED THE RISKS AND BENEFITS BUT STILL REFUSED, ALSO, REFUSED HER DINNER. WILL CONTINUE TO MONITOR.
--- NOTE | 2019-10-16 18:37 | NUR ---
MS RN NOTES PATIENT IN BED RESTING COMFORTABLY IN MODERATE HIGH BACK REST. A/O X3 ICELANDIC SPEAKING. NO S/S OF ACUTE DISTRESS NOTED THROUGHOUT THE SHIFT. S/P LEFT FOOT DEBRIDEMENT. NO COMPLAINTS OF PAIN AT THIS TIME. IV FLUIDS ON RIGHT UPPER ARM PICC INFUSING D5 1/2 NS @100CC/HR. SAFETY MEASURES IN PLACE WITH BED IN LOWEST LOCKED POSITION WITH SIDE RAILS UP X2. CALL LIGHT WITHIN REACH. WILL ENDORSE TO VIBRATING SCREED OPERATOR NURSE FOR TREY.
[2019-10-16 20:41] VITALS: BP 143/74
[2019-10-16] MEDS: INSULIN REGULAR, HUMAN 100 UNIT/ML 3 ML VIAL SQ PRN (21:44)
[2019-10-17] MEDS: IV D5/0.45 NACL 1,000 ML IV PRN ×2 (00:29→11:34)
--- NOTE | 2019-10-17 00:37 | NUR ---
MS2/RN PATIENT IS SLEEPING AT THIS TIME, FACE COVERED WITH BLANKET, CALL LIGHT IN REACH. WILL MONITOR.
[2019-10-17] MEDS: MEROPENEM 500 MG in IV NS 0.9% 50 ML IV SCH ×2 (03:03→14:51)
--- NOTE | 2019-10-17 06:42 | NUR ---
MS/RN PATIENT IS STILL SLEEPING AT THIS TIME, EASILY AROUSABLE, APPEAR COMFORTABLE, NO DISTRESS NOTED, ALL NEEDS ATTENDED AT THIS TIME, WILL CONTINUE TO MONITOR.
[2019-10-17] MEDS: BLOOD SUGAR DIAGNOSTIC 1 EACH STRIP IN SCH ×4 (07:05→21:12)
--- NOTE | 2019-10-17 07:16 | NUR ---
MS RN NOTES RECEIVED PATIENT IN BED RESTING COMFORTABLY IN MODERATE HIGH BACK REST. A/O X3 MACEDONIAN SPEAKING. NO S/S OF ACUTE DISTRESS NOTED AT THIS TIME. NO COMPLAINTS OF PAIN AT THIS TIME. NOTED WITH DRESSING ON LEFT FOOT, S/P DEBRIDEMENT. IV FLUIDS ON RIGHT UPPER ARM PICC INFUSING D5 1/2 NS @100CC/HR. SAFETY MEASURES IN PLACE WITH BED IN LOWEST LOCKED POSITION WITH SIDE RAILS UP X2. CALL LIGHT WITHIN REACH. WILL CONTINUE TO MONITOR.
[2019-10-17 08:00] VITALS: BP 161/62
[2019-10-17 08:01] LABS: BASOPHILS # (AUTO) 0.1 /CMM (0.0-0.2); BASOPHILS % (AUTO) 1.3 % (0.0-2.0); EOSINOPHILS % (AUTO) 1.5 % (0.0-6.0); HEMATOCRIT 26 % (33-45); HEMOGLOBIN 8.9 g/dL (11.5-14.8); LYMPHOCYTES # (AUTO) 1.1 /CMM (0.8-4.8); LYMPHOCYTES % (AUTO) 13.8 % (20.0-44.0); MEAN CORPUSCULAR HGB CONC 34 g/dl (31.0-36.0); MEAN CORPUSCULAR VOLUME 88 fL (82-100); MONOCYTES # (AUTO) 0.8 /CMM (0.1-1.30); NEUTROPHILS # (AUTO) 5.6 /CMM (1.8-8.9); NEUTROPHILS % (AUTO) 72.4 % (43.0-81.0); PLATELET COUNT (AUTO) 436 /CMM (150-450); RED BLOOD CELL COUNT(AUTO) 3.01 MIL/uL (4.0-5.2); WHITE BLOOD COUNT (AUTO) 7.7 K/uL (4.3-11.0)
[2019-10-17 08:04] LABS: CALCIUM, SERUM 7.5 mg/dL (8.5-10.1); CARBON DIOXIDE 23 mmol/L (21-32); CHLORIDE 103 mmol/L (98-107); CREATININE 1.7 mg/dL (0.6-1.3); GLUCOSE 118 mg/dL (74-106); POTASSIUM 3.3 mmol/L (3.5-5.1); SODIUM SERUM 137 mmol/L (136-145); UREA NITROGEN, BLOOD 9 mg/dL (7-18)
[2019-10-17] MEDS: MULTIVIT W/MINERALS 1 TAB TABLET PO SCH (08:18)
[2019-10-17] MEDS: FERROUS SULFATE (325 MG) 325 MG/TAB TABLET PO SCH ×2 (08:18→17:09)
[2019-10-17] MEDS: glipiZIDE 5 MG TABLET PO SCH (08:18)
[2019-10-17] MEDS: DAKINS QUARTER STRENGTH (0.125%) 480 ML BOTTLE TOP SCH (08:19)
--- NOTE | 2019-10-17 09:42 | NUR ---
SUPPLIER QUALITY SPECIALIST LEFT FOOT TREATMENT ORDERS CLARIFIED WITH DPM DR INGRAM. ALL DISCUSSED WITH NURSING STAFF.
--- NOTE | 2019-10-17 10:50 | NUR ---
RN NOTES SEEN AND EXAMINED BY DR. JUAN JOSE MD DID A LEFT FOOT WOUND CLOSURE AT BEDSIDE TODAY, CONSENT SIGNED, POST OP PICTURES TAKEN. WILL CONTINUE TO MONITOR.
[2019-10-17] MEDS ORDERED: POTASSIUM CHLORIDE 20 MEQ TAB.PRT.SR PO SCH (11:30)
[2019-10-17] MEDS: INSULIN REGULAR, HUMAN 100 UNIT/ML 3 ML VIAL SQ PRN ×3 (11:55→21:18)
[2019-10-17 16:00] VITALS: BP 144/64
[2019-10-17] MEDS: PROSOURCE / PROSTAT (PYXIS) 30 ML UDC PO SCH (17:09)
[2019-10-17] MEDS: ZINC SULFATE 220 MG CAPSULE PO SCH (17:09)
[2019-10-17] MEDS: ASCORBIC ACID 500 MG TABLET PO SCH (17:09)
--- NOTE | 2019-10-17 18:41 | NUR ---
MS RN NOTES PATIENT IN BED RESTING COMFORTABLY IN MODERATE HIGH BACK REST. A/O X3 SRI LANKAN SPEAKING. NO S/S OF ACUTE DISTRESS NOTED THROUGHOUT THE SHIFT. NOTED DRESSING ON LEFT FOOT, S/P WOUND CLOSURE ON LEFT FOOT. IV FLUIDS ON RIGHT UPPER ARM PICC INFUSING D5 1/2 NS @100CC/HR. SAFETY MEASURES IN PLACE WITH BED IN LOWEST LOCKED POSITION WITH SIDE RAILS UP X2. CALL LIGHT WITHIN REACH. WILL ENDORSE TO DIGITAL MEDIA ASSOCIATE FOR TREY.
--- NOTE | 2019-10-17 19:05 | NUR ---
MS RN: RECEIVED PATIENT Patient in bed, awake. On room air, tolerating well. Left foot dressing C/D/I denies pain. Fall, skin precaution maintained.
[2019-10-17 20:00] VITALS: BP 149/78
[2019-10-17] MEDS ORDERED: INSULIN GLARGINE, 100 UNIT/ML CARTRIDGE SQ SCH (22:00)
[2019-10-18] MEDS: IV D5/0.45 NACL 1,000 ML IV PRN (01:58)
[2019-10-18] MEDS: MEROPENEM 500 MG in IV NS 0.9% 50 ML IV SCH ×2 (03:08→14:59)
--- NOTE | 2019-10-18 06:27 | NUR ---
MS RN: REPORT Patient in bed, stable on room air. Left foot dressing C/D/I denies pain. Partial WB with surgical shoe per Podiatry. IVF infusing, IV antibiotic as scheduled, afebrile overnight. Fall, skin precaution . Plan dc to SNF with IV antibiotic and wound care.
[2019-10-18 06:47] LABS: CALCIUM, SERUM 7.6 mg/dL (8.5-10.1); CARBON DIOXIDE 25 mmol/L (21-32); CHLORIDE 104 mmol/L (98-107); CREATININE 1.5 mg/dL (0.6-1.3); GLUCOSE 148 mg/dL (74-106); POTASSIUM 3.1 mmol/L (3.5-5.1); SODIUM SERUM 139 mmol/L (136-145); UREA NITROGEN, BLOOD 7 mg/dL (7-18)
[2019-10-18] MEDS: BLOOD SUGAR DIAGNOSTIC 1 EACH STRIP IN SCH ×2 (06:54→11:38)
[2019-10-18] MEDS: INSULIN REGULAR, HUMAN 100 UNIT/ML 3 ML VIAL SQ PRN ×2 (06:57→11:51)
--- NOTE | 2019-10-18 07:18 | NUR ---
MS RN OPENING NOTE PATIENT IN BED RESTING COMFORTABLY. PATIENT IN NO ACUTE DISTRESS. NO SOB NOTED. PATIENT BREATHING IS EVEN AND UNLABORED. PATIENT BED ALARM IS ON. SAFETY PRECAUTIONS IN PLACE. IV PATENT AND IN PLACE. PATIENT BED IS LOCKED AND IN LOWEST POSITION. CALL LIGHT WITHIN REACH. WILL CONTINUE TO MONITOR.
[2019-10-18 08:00] VITALS: BP 156/88
[2019-10-18] MEDS: FERROUS SULFATE (325 MG) 325 MG/TAB TABLET PO SCH (08:04)
[2019-10-18] MEDS: MULTIVIT W/MINERALS 1 TAB TABLET PO SCH (08:05)
[2019-10-18] MEDS: DAKINS QUARTER STRENGTH (0.125%) 480 ML BOTTLE TOP SCH (08:16)
[2019-10-18] MEDS ORDERED: POTASSIUM CHLORIDE 20 MEQ TAB.PRT.SR PO SCH (09:30)
--- NOTE | 2019-10-18 11:38 | NUR ---
MS RN NOTE PATIENT BLOOD SUGAR IS 159. PATIENT IS REFUSING REGULAR INSULIN, 2 UNITS PRN. EDUCATED RISKS VS BENEFITS WITH STUDIO GRIP PRESENT. PATIENT CONTINUED TO REFUSE.
[2019-10-18 16:00] VITALS: BP 145/78
--- NOTE | 2019-10-18 16:47 | NUR ---
MS UMBRELLA CUTTER NOTE PATIENT MEDICALLY STABLE FOR DISCHARGE. PATIENT IN NO ACUTE DISTRESS. NO SOB NOTED. PATIENT BREATHING IS EVEN AND UNLABORED. PATIENT WITH CECILIO PICC LINE FOR LONG-TERM ANTIBIOTICS. REMOVED PATIENT RIGHT WRIST 22 G IV. REMOVED PATIENT ID BAND. DC INSTRUCTIONS PROVIDED, WITH INGOT CASTER PRESENT. PATIENT VERBALIZED UNDERSTANDING. WOUND CARE PROVIDED ORDERED. PATIENT KEPT CLEAN, DRY AND COMFORTABLE THROUGHOUT SHIFT. PATIENT SIGNED BELONGINGS LIST AND HAS BELONGINGS WITH HER. NEEDS AND CONCERNS ADDRESSED. PATIENT GOING BACK HOME BY GURNEY TO AMBULANCE AND HAVING HOME HEALTH. PER RETAIL SALES REPRESENTATIVE TERESA, HOME HEALTH WILL BE READY. MD AWARE OF DISCHARGE.
== END 2019-10-18 16:30 | disposition home health service (06) | DRG 616 ==
LOC: ER 15:59 → MEDSG2 17:50
PROVIDERS: ADMIT Internal Medicine; ATTEND Nurse Practitioner Acute Care
PROC: 0JBR0ZZ Excision of Left Foot Subcutaneous Tissue and Fascia, Open Approach (ICD-10-PCS; principal; 2019-10-09)
PROC: 0Y6S0Z0 Detachment at Left 2nd Toe, Complete, Open Approach (ICD-10-PCS; 2019-10-10)
PROC: 0Y6W0Z0 Detachment at Left 4th Toe, Complete, Open Approach (ICD-10-PCS; 2019-10-10)
PROC: 0JBR0ZZ Excision of Left Foot Subcutaneous Tissue and Fascia, Open Approach (ICD-10-PCS; 2019-10-13)
PROC: 0JBR0ZZ Excision of Left Foot Subcutaneous Tissue and Fascia, Open Approach (ICD-10-PCS; 2019-10-16)
DX: E11.69 Type 2 diabetes mellitus with other specified complication (principal); E43 Unspecified severe protein-calorie malnutrition; L03.116 Cellulitis of left lower limb; D68.69 Other thrombophilia; L97.528 Non-pressure chronic ulcer of other part of left foot with other specified severity; E11.52 Type 2 diabetes mellitus with diabetic peripheral angiopathy with gangrene; I96 Gangrene, not elsewhere classified; L02.612 Cutaneous abscess of left foot; M86.8X7 Other osteomyelitis, ankle and foot; Z68.1 Body mass index [BMI] 19.9 or less, adult; N17.0 Acute kidney failure with tubular necrosis; E11.621 Type 2 diabetes mellitus with foot ulcer; E11.22 Type 2 diabetes mellitus with diabetic chronic kidney disease; E03.9 Hypothyroidism, unspecified; D63.8 Anemia in other chronic diseases classified elsewhere; I12.9 Hypertensive chronic kidney disease with stage 1 through stage 4 chronic kidney disease, or unspecified chronic kidney disease; Z79.4 Long term (current) use of insulin; N18.9 Chronic kidney disease, unspecified; Z83.3 Family history of diabetes mellitus; E11.42 Type 2 diabetes mellitus with diabetic polyneuropathy; E87.6 Hypokalemia; E11.65 Type 2 diabetes mellitus with hyperglycemia; E88.09 Other disorders of plasma-protein metabolism, not elsewhere classified; M62.50 Muscle wasting and atrophy, not elsewhere classified, unspecified site; Z79.84 Long term (current) use of oral hypoglycemic drugs; L82.1 Other seborrheic keratosis; E11.649 Type 2 diabetes mellitus with hypoglycemia without coma
CPT/HCPCS: 36415; 71045-TC; 73630-TC; 73718-TC; 80048-TC; 80053-TC; 80076-TC; 80202-TC; 81000-TC; 82550-TC; 82728-TC; 82947-TC; 82962-TC; 83540-TC; 83605-TC; 83735-TC; 83970; 84100-TC; 84155; 84165; 84443-TC; 84484-TC; 85025-TC; 85652-TC; 85730-TC; 86140-TC; 86850-TC; 87040-TC; 87070-TC; 87075-TC; 87081-TC; 87086-TC; 87186-TC; 88305-TC; 88311-TC; 88312-TC; A4216; A6209; A6253; A6403; A6407; G0378; J1100; J1580; J1815; J2185; J2405; J2543; J2704; J2916; J3010; J3370; J3475; J3490; J7030; J7040; J7060

== ENCOUNTER 2019-10-21 12:27 | Inpatient (IN) | payer MEDICARE, MEDICAID ==
[~2019-10-21] VITALS: Ht 152.4 cm; Wt 47.4 kg
[~2019-10-21 12:27] MED LIST changes: +ACET-868 PO; +AMIN30LI2 PO; +ASCO500T9 PO; +BISA10SU11 RC; +COLL30OI TP; +GLUC1KIT IM; +INSU100V30 SQ; +MAGN400O6 PO; +METF-440 PO; +MULT9LIQ5 PO; +NA P133E RC; -VANC1PLA9 IV; +VANC750V IV; +ZINC1CAP2 PO
--- NOTE | 2019-10-21 12:36 | NUR ---
CALLED [facility], PAGED TARYN
--- NOTE | 2019-10-21 12:38 | NUR ---
CAME IN FOR CLOGGED RUE - PICC LINE, TO ER BED 11, HOOKED TO MONITOR, CHANGED TO HOSP GOWN, WARM BLANKET PROVIDED, DR WASHINGTON AT BEDSIDE.
[2019-10-21 12:55] LABS: BASOPHILS # (AUTO) 0.1 /CMM (0.0-0.2); BASOPHILS % (AUTO) 0.8 % (0.0-2.0); EOSINOPHILS % (AUTO) 2.3 % (0.0-6.0); HEMATOCRIT 27 % (33-45); LYMPHOCYTES % (AUTO) 14.6 % (20.0-44.0); MEAN CORPUSCULAR HGB CONC 34 g/dl (31.0-36.0); MEAN CORPUSCULAR VOLUME 88 fL (82-100); MONOCYTES # (AUTO) 0.6 /CMM (0.1-1.30); MONOCYTES % (AUTO) 9.5 % (2.0-12.0); NEUTROPHILS # (AUTO) 4.7 /CMM (1.8-8.9); NEUTROPHILS % (AUTO) 72.8 % (43.0-81.0); PLATELET COUNT (AUTO) 328 /CMM (150-450); RED BLOOD CELL COUNT(AUTO) 3.05 MIL/uL (4.0-5.2); WHITE BLOOD COUNT (AUTO) 6.5 K/uL (4.3-11.0)
[2019-10-21] MEDS ORDERED: MEROPENEM 1,000 MG in IV NS 0.9% 100 ML IV ONE (13:00)
[2019-10-21 13:02] LABS: CARBON DIOXIDE 28 mmol/L (21-32); CHLORIDE 100 mmol/L (98-107); CREATININE 1.5 mg/dL (0.6-1.3); GLUCOSE 190 mg/dL (74-106); POTASSIUM 3.9 mmol/L (3.5-5.1); SODIUM SERUM 137 mmol/L (136-145); UREA NITROGEN, BLOOD 13 mg/dL (7-18)
[2019-10-21] MEDS ORDERED: INSU100V7 SQ (13:04)
[2019-10-21] MEDS ORDERED: METF-440 PO (13:04)
[2019-10-21] MEDS ORDERED: MERO500V21 IV (13:04)
--- NOTE | 2019-10-21 13:14 | NUR ---
203- [facility]
--- NOTE | 2019-10-21 13:26 | NUR ---
REPORT GIVEN TO PCN, CONTUNUE PLAN OF CARE.
--- NOTE | 2019-10-21 13:27 | NUR ---
NOTE: MERREM - IVPB - INFUSING WHILE TRANSFER TO FLOOR
--- NOTE | 2019-10-21 13:39 | NUR ---
REPORT GIVEN TO SUSIE VILLARREAL OF MS UNIT
[2019-10-21 13:45] VITALS: BP 150/69
--- NOTE | 2019-10-21 13:45 | NUR ---
MS SIZING MACHINE AND DRIER OPERATOR NOTES ADMITTED PATIENT FROM [facility] REPORT GIVEN BY JEC RN. PATIENT ALERT ORIENTED X 3 CROATIAN SPEAKING ONLY, FRIEND SHAHZAD GRIER AT BEDSIDE TO TRANSLATE. NO ACUTE DISTRESS NOTED. BREATHING UNLABORED. DENIED ANY PAIN. IV ACCESS PATENT AND INTACT, NO REDNESS, NO SWELLING NOTED, RECEIVED PATIENT WITH RUNNING MERREM FROM ER. VITAL SIGNS STABLE. PATIENT REFUSED REMOVED LEFT FOOT DRESSING SAID NURSE CAME THIS MORNING AT HOME DRESSING WAS JUST CHANGED THIS MORNING, RISKS AND BENEFITS EXPLAINED, UNABLE CHECK AND TAKE PHOTO. SHOW HOW TO USE CALL LIGHT, PLACED WITHIN REACH. SAFETY MEASURES IN PLACE. WILL CONTINUE TO MONITOR ACCORDINGLY.
--- NOTE | 2019-10-21 14:10 | NUR ---
MS RN NOTES PAGED DR BELINDA CENTENO NOTIFIED REGARDING PATIENT ADMISSION, CLARIFIED DIET ORDER AND ADMISSION ORDERS, DR CENTENO ORDERED DIABETIC DIET AND SAID OTHER ORDERS COMING HE WILL PUT IN, DIET ORDER CLARIFIED AND READ BACK TO MD, NOTED AND CARRIED OUT. Addendum: 10/21/19 at 1506 by HOWARD YBARRA RN addendum: NOTIFIED DR BELINDA CENTENO ALSO REGARDING MEDICATION RECONCILIATION NEEDS TO BE DONE.
[2019-10-21] MEDS ORDERED: ACETAMINOPHEN 325 MG TABLET PO PRN ×2 (15:30)
[2019-10-21] MEDS ORDERED: MEROPENEM 500 MG VIAL IV SCH (15:30)
[2019-10-21] MEDS ORDERED: BISACODYL SUPP (10 MG) 10 MG/SUPP.RECT SUPP.RECT RC PRN (15:30)
[2019-10-21] MEDS ORDERED: INSULIN REGULAR, HUMAN 100 UNIT/ML 3 ML VIAL SQ PRN (15:30)
[2019-10-21] MEDS ORDERED: DEXTROSE 50%-WATER 50 ML DISP.SYRIN IV PRN (15:30)
[2019-10-21] MEDS ORDERED: HYDROCODONE/APAP 5/325MG 1 EACH TABLET PO PRN (15:30)
[2019-10-21] MEDS ORDERED: NA PHOS,M-B/NA PHOS,DI-BA 1 EA ENEMA RC PRN (15:30)
[2019-10-21] MEDS ORDERED: ZOLPIDEM TARTRATE 5 MG TABLET PO PRN (15:30)
[2019-10-21] MEDS ORDERED: *INSULIN REGULAR(HUMULIN R)HUM 100 UNIT/ML VIAL SQ PRN (15:30)
[2019-10-21] MEDS ORDERED: Z GUARD REMEDY 2 OZ OINT TP PRN (15:30)
[2019-10-21] MEDS ORDERED: ONDANSETRON HCL/PF 4 MG/2 ML VIAL IVP PRN (15:30)
[2019-10-21] MEDS ORDERED: MAG HYDROX/AL HYDROX/SIMETH 30 ML UDC PO PRN (15:30)
[2019-10-21] MEDS ORDERED: MAGNESIUM HYDROXIDE 30 ML UDC PO PRN ×2 (15:30)
[2019-10-21 16:00] VITALS: BP 149/68
[2019-10-21] MEDS: BLOOD SUGAR DIAGNOSTIC 1 EACH STRIP VI SCH ×2 (17:30→22:00)
[2019-10-21] MEDS: ZINC SULFATE 220 MG CAPSULE PO SCH (17:53)
[2019-10-21] MEDS: ASCORBIC ACID 500 MG TABLET PO SCH (17:53)
[2019-10-21] MEDS: PROSOURCE / PROSTAT (PYXIS) 30 ML UDC PO SCH (17:53)
--- NOTE | 2019-10-21 17:53 | NUR ---
MS RN NOTES PATIENT REFUSED ACCU CHECK, PROSTAT, ZINC, VITAMIN C DESPITE OF EXPLANATION OF RISKS AND BENEFITS
--- NOTE | 2019-10-21 18:59 | NUR ---
MS RN NOTES PATIENT IN BED ALERT ORIENTED X 3.NO ACUTE DISTRESS NOTED, BREATHING UNLABORED. IV ACCESS PATENT AND INTACT, NO REDNESS NO SWELLING NOTED. NEEDS ATTENDED AND ANTICIPATED. SAFETY MEASURES IN PLACE. CALL LIGHT WITHIN REACH. WILL ENDORSE TO NIGHT NURSE FOR CONTINUITY OF CARE.
[2019-10-21 20:00] VITALS: BP 141/62
[2019-10-21] MEDS ORDERED: ACETAMINOPHEN 325 MG TABLET PO SCH (21:00)
[2019-10-22] MEDS: MEROPENEM 500 MG in IV NS 0.9% 50 ML IV SCH ×2 (00:23→11:48)
[2019-10-22 06:40] LABS: BASOPHILS # (AUTO) 0.1 /CMM (0.0-0.2); BASOPHILS % (AUTO) 2.7 % (0.0-2.0); EOSINOPHILS % (AUTO) 3.1 % (0.0-6.0); HEMATOCRIT 26 % (33-45); HEMOGLOBIN 8.7 g/dL (11.5-14.8); LYMPHOCYTES # (AUTO) 0.9 /CMM (0.8-4.8); LYMPHOCYTES % (AUTO) 17.7 % (20.0-44.0); MEAN CORPUSCULAR HGB CONC 34 g/dl (31.0-36.0); MEAN CORPUSCULAR VOLUME 88 fL (82-100); MONOCYTES # (AUTO) 0.5 /CMM (0.1-1.30); MONOCYTES % (AUTO) 9.6 % (2.0-12.0); NEUTROPHILS # (AUTO) 3.4 /CMM (1.8-8.9); NEUTROPHILS % (AUTO) 66.9 % (43.0-81.0); PLATELET COUNT (AUTO) 286 /CMM (150-450); RED BLOOD CELL COUNT(AUTO) 2.92 MIL/uL (4.0-5.2); WHITE BLOOD COUNT (AUTO) 5.1 K/uL (4.3-11.0)
[2019-10-22] MEDS: BLOOD SUGAR DIAGNOSTIC 1 EACH STRIP VI SCH ×4 (06:48→22:26)
--- NOTE | 2019-10-22 06:53 | NUR ---
MS RN NOTES AWAKE & RESPONSIVE. NOT IN ANY DISTRESS. NO SOB NOTED. DENIES ANY PAIN OR DISCOMFORT AT THIS TIME. WITH IV-HL PATENT & INTACT. MONITORED ACCORDINGLY. CALL LIGHT WITHIN REACH. BED IN LOWEST POSITION. SR UP X 2 FOR SAFETY. WILL ENDORSE TO NEXT SHIFT.
[2019-10-22 07:12] LABS: CALCIUM, SERUM 7.8 mg/dL (8.5-10.1); CARBON DIOXIDE 29 mmol/L (21-32); CHLORIDE 101 mmol/L (98-107); CREATININE 1.4 mg/dL (0.6-1.3); GLUCOSE 84 mg/dL (74-106); MAGNESIUM 1.8 mg/dL (1.8-2.4); PHOSPHORUS 3.1 mg/dL (2.5-4.9); POTASSIUM 3.5 mmol/L (3.5-5.1); SODIUM SERUM 138 mmol/L (136-145); UREA NITROGEN, BLOOD 10 mg/dL (7-18)
--- NOTE | 2019-10-22 07:15 | NUR ---
MS RN NOTES RECEIVED PATIENT IN BED, ALERT AND AWAKE. NO SOB. HOB ELEVATED. DENIES ANY C/O PAIN NOR DISCOMFORT AT THIS TIME. LEFT FOOT WOUND DRESSING INTACT. LAC # 20 SL INTACT AND PATENT. BED IN LOWEST POSITION, LOCKED. BED ALARM ON. CALL LIGHT WITHIN REACH.
--- NOTE | 2019-10-22 07:30 | NUR ---
MS VILLARREAL NOTES REPORT GIVEN TO KYLEE VILLARREAL RE WOUND PICTURES D/T PT REFUSING TO HAVE PICTURES TAKEN YESTERDAY. WILL TAKE PICTURES LATER.
[2019-10-22 08:00] VITALS: BP 150/65
[2019-10-22] MEDS: MULTIVIT W/MINERALS 1 TAB TABLET PO SCH (08:12)
[2019-10-22] MEDS: THERAHONEY GEL 1.5 OZ TUBE TP SCH (08:12)
[2019-10-22] MEDS ORDERED: COLLAGENASE 30 GM TUBE TP SCH (09:00)
--- NOTE | 2019-10-22 15:20 | NUR ---
MS RN NOTES RECEIVED ORDER FROM ROSA KAUR DNP FOR ACTIVASE FOR DECLOT LINE OF PATIENT'S CECILIO PICC LINE, NOTED AND CARRIED OUT.
[2019-10-22] MEDS ORDERED: ALTEPLASE CATHFLO 2 MG/VIAL XX ONE (15:30)
--- NOTE | 2019-10-22 15:32 | NUR ---
MS RN NOTES RELAYED TO DR. CENTENO, PATIENT WITH POOR APPETITE, DOES NOT LIKE HOSPITAL FOOD AND PREFERS HER HOME FOOD AND IS DIABETIC.
--- NOTE | 2019-10-22 17:01 | NUR ---
MS RN NOTES RELAYED TO ROSA KAUR DNP CECILIO PICC LINE INTACT AND PATENT, FLUSHED WITH SALINE WITHOUT COMPLICATIONS.
[2019-10-22] MEDS: ASCORBIC ACID 500 MG TABLET PO SCH (17:04)
[2019-10-22] MEDS: PROSOURCE / PROSTAT (PYXIS) 30 ML UDC PO SCH (17:04)
[2019-10-22] MEDS: ZINC SULFATE 220 MG CAPSULE PO SCH (17:04)
--- NOTE | 2019-10-22 18:47 | NUR ---
MS RN NOTES PATIENT RESTING COMFORTABLY IN BED. NO S/S OF RESPIRATORY DISTRESS. ALERT AND ORIENTED X4. DENIES ANY C/O PAIN NOR DISCOMFORT AT THIS TIME. LEFT FOOT WOUND CARE RENDERED MAREN WELL. LAC # 20 SL INTACT AND PATENT. BED IN LOWEST POSITION, LOCKED. CECILIO PICC LINE INTACT AND PATENT. BED ALARM ON. CALL LIGHT WITHIN REACH. IN NO APPARENT DISTRESS.
--- NOTE | 2019-10-22 19:35 | NUR ---
RN OPENING NOTES RECEIVED REPORT FROM KYLEE YORK RN. FOUND PT AWAKE, RESTING IN BED. NO S/S OF ACUTE DISTRESS OR SOB NOTED. Pt IS A/OX3, VERBAL, ABLE TO MAKE NEEDS KNOWN, MONEGASQUE SPEAKING ONLY. PER REPORT CECILIO PICC LINE WAS CLOGGED, AND WAS ABLE TO DECLOT IT EARLIER TODAY. IV ACCESS ON CECILIO PICC & LAC #20G, SL. SAFETY MEASURES IN PLACE. BED LOW, LOCKED, HOB ELEVATED, SIDE RAILS UP, CALL LIGHT AND BEDSIDE TABLE WITHIN REACH. WILL CONTINUE TO MONITOR Pt's CONDITION AND SAFETY THROUGHOUT THE NIGHT.
[2019-10-22 21:00] VITALS: BP 145/76
--- NOTE | 2019-10-22 22:25 | NUR ---
RN NOTES HS ACCUCHECK BG 134. Pt REFUSED INSULIN AT THIS TIME. ALSO PER DAYSHIFT RN REPORT, Pt HAS BEEN HAVING POOR PO INTAKE DURING MEALS. WILL RECHECK BG IN THE AM.
--- NOTE | 2019-10-22 22:30 | NUR ---
RN NOTES Pt HAD A ORAL TEMP 99.2F OFFERED Pt TYLENOL Pt REFUSED IT AT THIS TIME.
[2019-10-23] MEDS: MEROPENEM 500 MG in IV NS 0.9% 50 ML IV SCH ×2 (00:17→12:06)
[2019-10-23] MEDS: BLOOD SUGAR DIAGNOSTIC 1 EACH STRIP VI SCH ×4 (06:30→22:00)
--- NOTE | 2019-10-23 06:39 | NUR ---
RN NOTES AC ACCUCHECK BG 92. NO INSULIN COVERAGE NEEDED AT THIS TIME.
--- NOTE | 2019-10-23 06:54 | NUR ---
RN CLOSING NOTES NO SIGNIFICANT CHANGES IN Pt's CONDITION. Pt REMAINS STABLE PER BASELINE. NO S/S OF ACUTE DISTRESS OR SOB NOTED DURING THE NIGHT. Pt IS RESTING IN BED. SAFETY MEASURES IN PLACE. BED ALARM ON. ALL NEEDS METS AND ATTENDED TO. WILL ENDORSE TO DAYSHIFT RN FOR Pt's TREY.
[2019-10-23 07:03] LABS: BASOPHILS # (AUTO) 0.1 /CMM (0.0-0.2); BASOPHILS % (AUTO) 1.9 % (0.0-2.0); HEMATOCRIT 28 % (33-45); HEMOGLOBIN 9.3 g/dL (11.5-14.8); LYMPHOCYTES # (AUTO) 0.9 /CMM (0.8-4.8); LYMPHOCYTES % (AUTO) 15.5 % (20.0-44.0); MEAN CORPUSCULAR HGB CONC 33 g/dl (31.0-36.0); MEAN CORPUSCULAR VOLUME 88 fL (82-100); MONOCYTES # (AUTO) 0.5 /CMM (0.1-1.30); MONOCYTES % (AUTO) 8.3 % (2.0-12.0); NEUTROPHILS # (AUTO) 4.4 /CMM (1.8-8.9); NEUTROPHILS % (AUTO) 72.3 % (43.0-81.0); PLATELET COUNT (AUTO) 305 /CMM (150-450); RED BLOOD CELL COUNT(AUTO) 3.18 MIL/uL (4.0-5.2)
--- NOTE | 2019-10-23 07:15 | NUR ---
M/S RN NOTES PATIENT AWAKE IN BED, NO RESPIRATORY DISTRESS, NO C/O PAIN AT THIS TIME. PATIENT'S SKIN WARM TO TOUCH, IV PICC LINE ON CECILIO INTACT AND PATENT, LAC SL #20G INTACT AND PATENT. LT FOOT WOUND WITH DRESSING C/D/I. PATIENT'S NEEDS ATTENDED, BED ON LOWEST LOCKED POSITION, CALL LIGHT WITHIN REACH. WILL CONTINUE TO MONITOR.
[2019-10-23 07:19] LABS: ALANINE AMINOTRANSFERASE 20 U/L (12-78); ALBUMIN 2.4 g/dL (3.4-5.0); ALKALINE PHOSPHATASE 105 U/L (46-116); ASPARTATE AMINOTRANSFERASE 28 U/L (15-37); BILIRUBIN,TOTAL 0.5 mg/dL (0.2-1.0); CALCIUM, SERUM 8.2 mg/dL (8.5-10.1); CARBON DIOXIDE 31 mmol/L (21-32); CHLORIDE 99 mmol/L (98-107); CREATININE 1.5 mg/dL (0.6-1.3); GLUCOSE 90 mg/dL (74-106); MAGNESIUM 1.9 mg/dL (1.8-2.4); PHOSPHORUS 3.1 mg/dL (2.5-4.9); POTASSIUM 3.4 mmol/L (3.5-5.1); SODIUM SERUM 137 mmol/L (136-145); TOTAL PROTEIN, SERUM 6.5 g/dL (6.4-8.2); UREA NITROGEN, BLOOD 13 mg/dL (7-18)
[2019-10-23 07:47] LABS: IRON, SERUM 38 ug/dl (50-175); TOTAL IRON BINDING CAPACITY 163 ug/dl (250-450)
[2019-10-23 08:00] VITALS: BP 152/74
[2019-10-23] MEDS: MULTIVIT W/MINERALS 1 TAB TABLET PO SCH (08:09)
[2019-10-23] MEDS: THERAHONEY GEL 1.5 OZ TUBE TP SCH (08:49)
[2019-10-23] MEDS ORDERED: POTASSIUM CHLORIDE 20 MEQ TAB.PRT.SR PO SCH (09:00)
[2019-10-23 10:30] LABS: CREATINE KINASE, TOTAL 21 U/L (26-192)
--- NOTE | 2019-10-23 11:18 | NUR ---
M/S RN NOTES LAB REPORTED BLOOD CX RESULT FOR PATIENT OF GRAM POSITIVE [employer], WILL NOTIFY
[2019-10-23 12:13] LABS: FERRITIN 1828 ng/mL (8-388)
[2019-10-23 16:00] VITALS: BP 151/76
--- NOTE | 2019-10-23 16:34 | NUR ---
M/S RN NOTES DR. GLASS AT BEDSIDE WITH PATIENT.
[2019-10-23] MEDS: PROSOURCE / PROSTAT (PYXIS) 30 ML UDC PO SCH (18:18)
[2019-10-23] MEDS: ZINC SULFATE 220 MG CAPSULE PO SCH (18:18)
[2019-10-23] MEDS: ASCORBIC ACID 500 MG TABLET PO SCH (18:18)
--- NOTE | 2019-10-23 18:42 | NUR ---
M/S RN NOTES PATIENT AWAKE IN BED, NO RESPIRATORY DISTRESS, NO C/O PAIN AT THIS TIME. SKIN WARM TO TOUCH, IV ACCESS SITE INTACT AND PATENT. PATIENT'S IV ON THE LAC REMOVED AND APPLIED PRESSURE DRESSING. PATIENT BEING DISCHARGED TONIGHT AND GOING HOME WITH PICC LINE ON THE CECILIO TO CONTINUE IV ABX, PICC LINE INTACT AND PATENT. PATIENT GIVEN DISCHARGE INSTRUCTIONS, VERBALIZED UNDERSTANDING. BELONGINGS ACCOUNTED FOR AND PATIENT SIGNED BELONGINGS LIST. PATIENT'S NEEDS ATTENDED, BED ON LOWEST LOCKED POSITION, CALL LIGHT WITHIN REACH. WILL ENDORSE TO ONCOMING NURSE DISCHARGE INSTRUCTIONS.
[2019-10-23] MEDS ORDERED: CLONIDINE HCL 0.1 MG TABLET PO PRN (19:00)
--- NOTE | 2019-10-23 19:35 | NUR ---
RN OPENING NOTES RECEIVED REPORT FROM CHARLENE YORK RN. FOUND PT RESTING IN BED. NO S/S OF ACUTE DISTRESS OR SOB NOTED. Pt IS A/OX3, VERBAL, ABLE TO MAKE NEEDS KNOWN, FAROESE SPEAKING ONLY. PER REPORT Pt IS BEING DISCHARGED TONIGHT; AMBULANCE SERVICE PERSON IS SCHEDULED FOR 2029; Pt IS BEING DISCHARGED HOME WITH HOME HEALTH AND IS GOING HOME WITH PICC LINE AND WITH IV ABX. IV ACCESS ON CECILIO PICC. SAFETY MEASURES IN PLACE. BED LOW, LOCKED, HOB ELEVATED, SIDE RAILS UP, CALL LIGHT AND BEDSIDE TABLE WITHIN REACH. WILL CONTINUE TO MONITOR Pt's CONDITION AND SAFETY THROUGHOUT THE NIGHT UNTIL DISCHARGED.
[2019-10-23 20:30] VITALS: BP 125/60
--- NOTE | 2019-10-23 22:38 | NUR ---
RN NOTES STILL WAITING FOR AMBULANCE SENIOR [employer] TECHNICIAN. CALLED [facility] AND THEY SAID THEY WERE BEHIND, BUT ARE ON THEIR WAY AND SHOULD BE ARRIVING IN THE NEXT 15MIN OR SO.
--- NOTE | 2019-10-23 22:38 | NUR ---
RN NOTES Pt REFUSED FOR ACCUCHECK.
--- NOTE | 2019-10-23 22:55 | NUR ---
MANAGER BACKGROUND NOTES [facility] ARRIVED TO THE FLOOR FOR TAPER PRINTED CIRCUIT LAYOUT TRANSPORT FOR THE Pt. NO MEDS GIVEN AT THIS TIME. Pt REFUSED FOR BLOOD SUGAR CHECK; INFORMED EMT. NO S/S OF ACUTE DISTRESS OR SOB NOTED. RESPIRATIONS EVEN AND UNLABORED. VS STABLE. Pt IS GOING HOME WITH PICC LINE AND IV ABX AND HOME HEALTH SCHEDULED TO FOLLOW UP. SAFETY MEASURES IN PLACE. Pt SAFELY TRANSFERRED TO [facility]BUL[facility] AND SAFELY LEFT FACILITY.
== END 2019-10-23 22:50 | disposition home health service (06) | DRG 637 ==
LOC: ER 12:29 → MEDSG2 13:21
PROVIDERS: ADMIT Internal Medicine; ATTEND Internal Medicine
DX: E11.69 Type 2 diabetes mellitus with other specified complication (principal); E43 Unspecified severe protein-calorie malnutrition; M86.8X7 Other osteomyelitis, ankle and foot; L97.429 Non-pressure chronic ulcer of left heel and midfoot with unspecified severity; L03.116 Cellulitis of left lower limb; N17.0 Acute kidney failure with tubular necrosis; D63.1 Anemia in chronic kidney disease; E11.22 Type 2 diabetes mellitus with diabetic chronic kidney disease; E11.621 Type 2 diabetes mellitus with foot ulcer; E11.65 Type 2 diabetes mellitus with hyperglycemia; I12.9 Hypertensive chronic kidney disease with stage 1 through stage 4 chronic kidney disease, or unspecified chronic kidney disease; N18.9 Chronic kidney disease, unspecified; Z79.4 Long term (current) use of insulin; Z83.3 Family history of diabetes mellitus; E88.09 Other disorders of plasma-protein metabolism, not elsewhere classified; M62.50 Muscle wasting and atrophy, not elsewhere classified, unspecified site; Z79.84 Long term (current) use of oral hypoglycemic drugs; Z68.20 Body mass index [BMI] 20.0-20.9, adult; E11.42 Type 2 diabetes mellitus with diabetic polyneuropathy
CPT/HCPCS: 36415; 71045-TC; 80048-TC; 80053-TC; 82550-TC; 82728-TC; 82962-TC; 83540-TC; 83735-TC; 83970; 84100-TC; 85025-TC; 87040-TC; 87081-TC; A4216; A6403; A6407; G0378; J1815; J2185; J2997; J7030

== ENCOUNTER 2019-10-24 14:43 | Outpatient (CLI) | payer MEDICARE, MEDICAID ==
[~2019-10-24 14:43] MED LIST changes: -GLIP5TAB13 PO; +INSU100V7 SQ; +MERO500V21 IV; -VANC750V IV
== END 2019-10-24 23:59 | disposition home or self-care (01) ==
LOC: MSC 14:43
PROVIDERS: ATTEND Internal Medicine
DX: M86.172 Other acute osteomyelitis, left ankle and foot (principal); Z89.422 Acquired absence of other left toe(s); N17.0 Acute kidney failure with tubular necrosis; E11.9 Type 2 diabetes mellitus without complications; Z79.4 Long term (current) use of insulin; Z79.84 Long term (current) use of oral hypoglycemic drugs; N18.9 Chronic kidney disease, unspecified; D63.1 Anemia in chronic kidney disease; E43 Unspecified severe protein-calorie malnutrition; E88.09 Other disorders of plasma-protein metabolism, not elsewhere classified; M62.50 Muscle wasting and atrophy, not elsewhere classified, unspecified site; Z79.899 Other long term (current) drug therapy

== ENCOUNTER 2019-11-17 13:35 | Outpatient (CLI) | payer MEDICARE, MEDICAID ==
[~2019-11-17 13:35] MED LIST changes: +ASCO-352 PO; -ASCO500T9 PO
== END 2019-11-17 23:59 | disposition home or self-care (01) ==
LOC: WOU 13:35
PROVIDERS: ATTEND Podiatrist Foot & Ankle Surgery
DX: E11.621 Type 2 diabetes mellitus with foot ulcer (principal); L97.522 Non-pressure chronic ulcer of other part of left foot with fat layer exposed; E11.42 Type 2 diabetes mellitus with diabetic polyneuropathy; E11.69 Type 2 diabetes mellitus with other specified complication; M86.172 Other acute osteomyelitis, left ankle and foot; Z79.84 Long term (current) use of oral hypoglycemic drugs; Z89.422 Acquired absence of other left toe(s)
CPT/HCPCS: 11042; A6407

== ENCOUNTER 2019-11-24 13:00 | Outpatient (CLI) | payer MEDICARE, MEDICAID | END 2019-11-24 23:59 | disposition home health service (06) | LOC: WOU 13:00 | PROVIDERS: ATTEND Podiatrist Foot & Ankle Surgery | DX: E11.621 Type 2 diabetes mellitus with foot ulcer (principal); L97.522 Non-pressure chronic ulcer of other part of left foot with fat layer exposed; E11.42 Type 2 diabetes mellitus with diabetic polyneuropathy; E11.69 Type 2 diabetes mellitus with other specified complication; M86.172 Other acute osteomyelitis, left ankle and foot; Z79.84 Long term (current) use of oral hypoglycemic drugs; Z89.422 Acquired absence of other left toe(s); Z85.3 Personal history of malignant neoplasm of breast | CPT/HCPCS: 11042; A6407 ==

== ENCOUNTER 2019-12-08 13:00 | Outpatient (CLI) | payer MEDICARE, MEDICAID | END 2019-12-08 23:59 | disposition home health service (06) | LOC: WOU 13:00 | PROVIDERS: ATTEND Podiatrist Foot & Ankle Surgery | DX: E11.621 Type 2 diabetes mellitus with foot ulcer (principal); L97.525 Non-pressure chronic ulcer of other part of left foot with muscle involvement without evidence of necrosis; E11.42 Type 2 diabetes mellitus with diabetic polyneuropathy; E11.69 Type 2 diabetes mellitus with other specified complication; M86.172 Other acute osteomyelitis, left ankle and foot; Z79.84 Long term (current) use of oral hypoglycemic drugs; Z89.422 Acquired absence of other left toe(s) | CPT/HCPCS: 11043; A6407 ==

== ENCOUNTER 2019-12-15 13:35 | Outpatient (CLI) | payer MEDICARE, MEDICAID | END 2019-12-15 23:59 | disposition home health service (06) | LOC: WOU 13:35 | PROVIDERS: ATTEND Podiatrist Foot & Ankle Surgery | DX: E11.621 Type 2 diabetes mellitus with foot ulcer (principal); L97.522 Non-pressure chronic ulcer of other part of left foot with fat layer exposed; E11.69 Type 2 diabetes mellitus with other specified complication; M86.172 Other acute osteomyelitis, left ankle and foot; Z79.84 Long term (current) use of oral hypoglycemic drugs; Z89.422 Acquired absence of other left toe(s) | CPT/HCPCS: 11042; 11043; A6407 ==

== ENCOUNTER 2019-12-22 13:15 | Outpatient (CLI) | payer MEDICARE, MEDICAID | END 2019-12-22 23:59 | disposition home health service (06) | LOC: WOU 13:15 | PROVIDERS: ATTEND Podiatrist Foot & Ankle Surgery | DX: E11.621 Type 2 diabetes mellitus with foot ulcer (principal); L97.522 Non-pressure chronic ulcer of other part of left foot with fat layer exposed; E11.42 Type 2 diabetes mellitus with diabetic polyneuropathy; E11.69 Type 2 diabetes mellitus with other specified complication; M86.172 Other acute osteomyelitis, left ankle and foot; Z79.84 Long term (current) use of oral hypoglycemic drugs; Z89.422 Acquired absence of other left toe(s) | CPT/HCPCS: 11043 ==

== ENCOUNTER 2019-12-26 11:06 | Outpatient (CLI) | payer MEDICARE, MEDICAID | END 2019-12-26 23:59 | disposition home or self-care (01) | LOC: MRI 11:06 | PROVIDERS: ATTEND Podiatrist Foot & Ankle Surgery | DX: M86.8X7 Other osteomyelitis, ankle and foot (principal) | CPT/HCPCS: 73718-TC ==

== ENCOUNTER 2020-01-12 12:55 | Outpatient (CLI) | payer MEDICARE, MEDICAID | END 2020-01-12 23:59 | disposition home health service (06) | LOC: WOU 12:55 | PROVIDERS: ATTEND Podiatrist Foot & Ankle Surgery | DX: E11.621 Type 2 diabetes mellitus with foot ulcer (principal); L97.522 Non-pressure chronic ulcer of other part of left foot with fat layer exposed; E11.42 Type 2 diabetes mellitus with diabetic polyneuropathy; E11.69 Type 2 diabetes mellitus with other specified complication; M86.172 Other acute osteomyelitis, left ankle and foot; Z79.84 Long term (current) use of oral hypoglycemic drugs | CPT/HCPCS: 11042 ==

== ENCOUNTER 2020-01-26 12:55 | Outpatient (CLI) | payer MEDICARE, MEDICAID | END 2020-01-26 23:59 | disposition home health service (06) | LOC: WOU 12:55 | PROVIDERS: ATTEND Podiatrist Foot & Ankle Surgery | DX: E11.42 Type 2 diabetes mellitus with diabetic polyneuropathy (principal); E11.69 Type 2 diabetes mellitus with other specified complication; M86.172 Other acute osteomyelitis, left ankle and foot; M79.672 Pain in left foot; Z89.422 Acquired absence of other left toe(s); Z79.84 Long term (current) use of oral hypoglycemic drugs | CPT/HCPCS: G0463 ==

== ENCOUNTER 2020-02-09 11:40 | Outpatient (CLI) | payer MEDICARE, MEDICAID | END 2020-02-09 23:59 | disposition home or self-care (01) | LOC: RAD 11:40 | PROVIDERS: ATTEND Podiatrist Foot & Ankle Surgery | DX: M25.572 Pain in left ankle and joints of left foot (principal) | CPT/HCPCS: 73630-TC ==

== ENCOUNTER 2020-02-13 13:00 | Outpatient (CLI) | payer MEDICARE, MEDICAID | END 2020-02-13 23:59 | disposition home health service (06) | LOC: WOU 13:00 | PROVIDERS: ATTEND Podiatrist Foot & Ankle Surgery | DX: Z09 Encounter for follow-up examination after completed treatment for conditions other than malignant neoplasm (principal); Z86.31 Personal history of diabetic foot ulcer; E11.42 Type 2 diabetes mellitus with diabetic polyneuropathy; Z79.84 Long term (current) use of oral hypoglycemic drugs; Z89.422 Acquired absence of other left toe(s) | CPT/HCPCS: G0463 ==